=== PATIENT | female | born 1955 ===

== ENCOUNTER 2017-01-28 18:30 | Emergency (ER) | payer OTHER ==
[2017-01-28 18:34] VITALS: BMI 34.1
[2017-01-28 19:03] LABS: BASO % 0.2 % (0.0-2.0); EOS # 0.1 K/uL (0.0-0.7); EOS % 1.5 % (0.0-4.0); HEMATOCRIT 40.9 % (34.0-47.0); LYMPH # 1.5 K/uL (1.0-4.3); LYMPH % 17.7 % (20.0-40.0); MEAN CELL VOLUME 85.6 fL (81.0-99.0); MEAN CORPUSCULAR HEMOGLOBIN 28.9 pg (27.0-31.0); MEAN CORPUSCULAR HGB CONC 33.7 g/dL (33.0-37.0); MEAN PLATELET VOLUME 7.8 fL (7.2-11.7); MONO # 0.7 K/uL (0.0-0.8); MONO % 8.8 % (0.0-10.0); RED CELL DISTRIBUTION WIDTH 13.9 % (11.5-14.5); WHITE BLOOD COUNT 8.4 K/uL (4.8-10.8)
[2017-01-28] MEDS ORDERED: Sodium Chloride 0.9% 1,000 ML IV ONE (19:05)
--- NOTE | 2017-01-28 19:05 | C.PDOC ---
History Of Present Illness 61 y/o female c/o epigastric abdominal pain associated with vomiting for 2 days. Denies diarrhea, dysuria, and fever. Patient is vomiting in the ER. Time Seen by Provider: 01/28/17 19:07 Chief Complaint (Nursing): Abdominal Pain History Per: Patient History/Exam Limitations: no limitations Onset/Duration Of Symptoms: Days (2) Current Symptoms Are (Timing): Still Present Severity: Mild Location Of Pain/Discomfort: Epigastric Radiation Of Pain To:: None Quality Of Discomfort: "Pain" Associated Symptoms: Vomiting. denies: Fever, Diarrhea Recent travel outside of the [place]: No Additional History Per: Patient Past Medical History Reviewed: Historical Data, Nursing Documentation, Vital Signs Vital Signs: Last Vital Signs Temp 97.8 F 01/28/17 18:34 Pulse 115 H 01/28/17 18:34 Resp 18 01/28/17 18:34 BP 164/101 H 01/28/17 18:34 Pulse Ox 96 01/28/17 21:47 - Medical History PMH: Anemia, Anxiety, Asthma, Bipolar Disorder, Depression, Diabetes, Emphysema , HTN, Hypercholesterolemia, Hyperlipidemia, Schizophrenia Denies: Chronic Kidney Disease - [facility] Procedures COLONOSCOPY (08/18/13) TETANUS TOXOID ADMINIST (03/29/13) Family History: States: Unknown Family Hx - Social History Hx Tobacco Use: Yes Hx Alcohol Use: No Hx Substance Use: No - Immunization History Hx Tetanus Toxoid Vaccination: Yes (not sure) Hx Influenza Vaccination: Yes (not sure) Hx Pneumococcal Vaccination: Yes (not sure) Review Of Systems Except As Marked, All Systems Reviewed And Found Negative. Constitutional: Negative for: Fever Gastrointestinal: Positive for: Vomiting, Abdominal Pain. Negative for: Diarrhea Genitourinary: Negative for: Dysuria Physical Exam - Physical Exam Appears: Non-toxic, No Acute Distress Skin: Warm, Dry Head: Atraumatic, Normacephalic Chest: Symmetrical Cardiovascular: Rhythm Regular Respiratory: Normal Breath Sounds, No Rales, No Rhonchi, No Wheezing Gastrointestinal/Abdominal: Soft, Tenderness (Epigastric), No Mass (No palpable mass), No Guarding, No Rebound, Other (Abdomen obese) Back: No CVA Tenderness Neurological/Psych: Oriented x3, Normal Speech ED Course And Treatment - Laboratory Results Result Diagrams: 01/28/17 19:00 01/28/17 19:00 ECG: Interpreted By Me, Viewed By Me ECG Rhythm: Sinus Bradycardia ECG Interpretation: No Acute Changes, Abnormal Interpretation Of ECG: poor R-wave progression V1 to V4 Rate From EC O2 Sat by Pulse Oximetry: 96 (RA) Pulse Ox Interpretation: Normal - CT Scan/US CT Head w/o Other Rad Studies (CT/US): Interpreted By Me, Read By Radiologist CT/US Interpretation: EXAM: CT Head Without Intravenous Contrast. CLINICAL HISTORY: 61 years old, female; Signs and symptoms; Dizziness; Additional info: Headache/ vomiting. TECHNIQUE: Axial computed tomography images of the head/ brain without intravenous contrast. All CT scans at. this facility use one or more dose reduction techniques, viz.: automated exposure control; ma/kV. adjustment per patient size (including targeted exams where dose is matched to indication; i.e. head);. or iterative reconstruction technique. COMPARISON: No relevant prior studies available. FINDINGS: Brain: Minimal atrophy. No intracranial hemorrhage. No mass. Several scattered foci of decreased. attenuation within periventricular/subcortical white matter. No definite edema. Ventricles: No hydrocephalus. Bones/joints: No acute fracture. Soft tissues : Unremarkable. Vasculature: Mild atherosclerotic disease of intracranial arteries. Sinuses: No acute sinusitis. Mastoid air cells: No mastoid effusion. Orbits: Unremarkable as visualized. IMPRESSION: 1. Nonspecific white matter changes. Acute infarction may be CT occult within first 24 hours. If a. focal deficit persists, consider followup CT or MRI for further evaluation. 2. Incidental/non-acute findings are described above. CTAbd/Pel with IV Other Rad Studies (CT/US): Interpreted By Me, Read By Radiologist CT/US Interpretation: EXAM: CT Abdomen and Pelvis With Intravenous Contrast. CLINICAL HISTORY: 61 years old, female; Pain; Abdominal pain; Flank; Upper; Additional info: Upper abd pain/ vomiting. TECHNIQUE: Axial computed tomography images of the abdomen and pelvis with intravenous contrast. All CT. scans at this facility use one or more dose reduction techniques, viz.: automated exposure control;. ma/kV adjustment per patient size (including targeted exams where dose is matched to indication; i.e. head); or iterative reconstruction technique. Coronal and sagittal reformatted images were created and reviewed. CONTRAST: 100 mL of visipaque 320 administered intravenously. COMPARISON: No relevant prior studies available. FINDINGS: Limitations: Motion artifact - mild. Lower thorax: Minimal atelectasis/scarring. Small pericardial effusion. ABDOMEN: Liver: Unremarkable. No mass. Gallbladder and bile ducts: No calcified stones. No ductal dilation. Pancreas: No ductal dilation. No mass. Spleen: No splenomegaly. Adrenals: No mass. Kidneys and ureters: No mass. No hydronephrosis. Stomach and bowel: Mild focal mural thickening vs underdistention of gastric antrum. Few scattered. diverticula within colon. No associated inflammatory stranding. Segmental areas of mild mural. thickening vs underdistention of large bowel. No associated inflammatory stranding. No obstruction. Appendix: Normal caliber. No inflammation. PELVIS: Bladder: Unremarkable. Reproductive: 1.9 x 2.0 x 1.6 cm hypodense lesion within LEFT adnexal region. ABDOMEN and PELVIS: Intraperitoneal space: No significant fluid collection. No free air. Bones/ joints: Mild degenerative changes of spine. No acute fracture. Soft tissues: Tiny umbilical hernia containing fat. Vasculature: Mild atherosclerotic disease. No aneurysm. Lymph nodes: No pathologically enlarged lymph nodes. IMPRESSION: 1. Mild colitis versus underdistention. Clinical correlation is needed. 2. Probable LEFT adnexal cyst. Suggest nonemergent ultrasound. 3. Incidental/non-acute findings are described above. Medical Decision Making Medical Decision Making: Impression: * epigastric abdominal pain associated with vomiting for 2 days. Plans: * CT Abd/Pel w/ PO and IV contrast * EKG * Blood labs * Pepcid * Omnipaque * Zofran * IV fluids * UA Patient has been witness doing self-induced vomiting with her hands. Disposition Counseled Patient/Family Regarding: Diagnosis - Disposition Referrals: [facility] [Outside] Disposition: HOME/ ROUTINE Disposition Time: 21:54 Condition: STABLE Prescriptions: Famotidine [Pepcid] 20 mg PO BID #20 tab Ondansetron ODT [Zofran ODT] 1 odt PO BID PRN #6 odt PRN Reason: Nausea/Vomiting Sucralfate [Carafate] 1 gm PO BID #20 tab Instructions: Gastritis (GEN), Diet for Ulcers and Gastritis (ED), Acute Nausea and Vomiting (ED) Forms: [facility] (Mauritian), Gen Discharge Inst Georgian - POA Present On Arrival: None - Clinical Impression Clinical Impression: Vomiting, Gastritis - Scribe Statement The provider has reviewed the documentation as recorded by the Scribe Rita bacon All medical record entries made by the Scribe were at my direction and personally dictated by me. I have reviewed the chart and agree that the record accurately reflects my personal performance of the history, physical exam, medical decision making, and the department course for this patient. I have also personally directed, reviewed, and agree with the discharge instructions and disposition.
[2017-01-28] MEDS ORDERED: Iohexol 240 (50 ml) PO ONE (19:08)
[2017-01-28 19:12] LABS: CHLORIDE 94 mmol/L (98-107); POTASSIUM 3.9 mmol/L (3.6-5.2); SODIUM 130 mmol/L (132-148)
[2017-01-28 19:15] LABS: ALB/GLOB RATIO 1.2 (1.0-2.1); ALKALINE PHOSPHATASE 90 U/L (38-126); AST/SGOT 60 U/L (14-36); BLOOD UREA NITROGEN 5 mg/dL (7-17); CARBON DIOXIDE 24 mmol/L (22-30); GFR AFRICAN-AMERICAN > 60; GLUCOSE,RANDOM 110 mg/dL (65-105); TOTAL PROTEIN 8.5 g/dL (6.3-8.3)
[2017-01-28 19:16] LABS: ALT/SGPT 60 U/L (9-52); CALCIUM 9.7 mg/dl (8.6-10.4)
[2017-01-28] MEDS ORDERED: Iohexol 240 (50 ml) ONE (19:28)
[2017-01-28 20:05] LABS: RBC URINE 1 /hpf (0-3); URINE BACTERIA RARE (<OCC); URINE BILIRUBIN NEGATIVE (NEGATIVE); URINE BLOOD NEGATIVE (NEGATIVE); URINE COLOR Yellow (YELLOW); URINE GLUCOSE (UA) NORMAL (Normal); URINE KETONE NEGATIVE (NEGATIVE); URINE LEUKOCYTE ESTERASE 1+ Leu/uL (Negative); URINE PROTEIN 2+ mg/dL (NEGATIVE); URINE UROBILINOGEN NORMAL mg/dL (0.2-1.0); WBC URINE 28 /hpf (0-5)
[2017-01-28] MEDS ORDERED: Iodixanol 320 MG/ML 100 ML BOTTLE IV ONE (20:15)
--- NOTE | 2017-01-28 21:23 | CT ---
EXAM: CT Head Without Intravenous Contrast CLINICAL HISTORY: 61 years old, female; Signs and symptoms; Dizziness; Additional info: Headache/ vomiting TECHNIQUE: Axial computed tomography images of the head/brain without intravenous contrast. All CT scans at this facility use one or more dose reduction techniques, viz.: automated exposure control; ma/kV adjustment per patient size (including targeted exams where dose is matched to indication; i.e. head); or iterative reconstruction technique. COMPARISON: No relevant prior studies available. FINDINGS: Brain: Minimal atrophy. No intracranial hemorrhage. No mass. Several scattered foci of decreased attenuation within periventricular/subcortical white matter. No definite edema. Ventricles: No hydrocephalus. Bones/joints: No acute fracture. Soft tissues: Unremarkable. Vasculature: Mild atherosclerotic disease of intracranial arteries. Sinuses: No acute sinusitis. Mastoid air cells: No mastoid effusion. Orbits: Unremarkable as visualized. IMPRESSION: 1. Nonspecific white matter changes. Acute infarction may be CT occult within first 24 hours. If a focal deficit persists, consider followup CT or MRI for further evaluation. 2. Incidental/non-acute findings are described above.
--- NOTE | 2017-01-28 21:34 | CT ---
EXAM: CT Abdomen and Pelvis With Intravenous Contrast CLINICAL HISTORY: 61 years old, female; Pain; Abdominal pain; Flank; Upper; Additional info: Upper abd pain/ vomiting TECHNIQUE: Axial computed tomography images of the abdomen and pelvis with intravenous contrast. All CT scans at this facility use one or more dose reduction techniques, viz.: automated exposure control; ma/kV adjustment per patient size (including targeted exams where dose is matched to indication; i.e. head); or iterative reconstruction technique. Coronal and sagittal reformatted images were created and reviewed. CONTRAST: 100 mL of visipaque 320 administered intravenously. COMPARISON: No relevant prior studies available. FINDINGS: Limitations: Motion artifact - mild. Lower thorax: Minimal atelectasis/scarring. Small pericardial effusion. ABDOMEN: Liver: Unremarkable. No mass. Gallbladder and bile ducts: No calcified stones. No ductal dilation. Pancreas: No ductal dilation. No mass. Spleen: No splenomegaly. Adrenals: No mass. Kidneys and ureters: No mass. No hydronephrosis. Stomach and bowel: Mild focal mural thickening vs underdistention of gastric antrum. Few scattered diverticula within colon. No associated inflammatory stranding. Segmental areas of mild mural thickening vs underdistention of large bowel. No associated inflammatory stranding. No obstruction. Appendix: Normal caliber. No inflammation. PELVIS: Bladder: Unremarkable. Reproductive: 1.9 x 2.0 x 1.6 cm hypodense lesion within LEFT adnexal region. ABDOMEN and PELVIS: Intraperitoneal space: No significant fluid collection. No free air. Bones/joints: Mild degenerative changes of spine. No acute fracture. Soft tissues: Tiny umbilical hernia containing fat. Vasculature: Mild atherosclerotic disease. No aneurysm. Lymph nodes: No pathologically enlarged lymph nodes. IMPRESSION: 1. Mild colitis versus underdistention. Clinical correlation is needed. 2. Probable LEFT adnexal cyst. Suggest nonemergent ultrasound. 3. Incidental/non-acute findings are described above.
[2017-01-28] MEDS ORDERED: Aluminum Hydroxide/Magnesium Hydroxide Susp (30 mL) ONE (21:53)
[2017-01-28 22:35] VITALS: BP 167/74; PULSE 94; RESP 20; TEMP 98.5; O2SAT 99
--- NOTE | 2017-01-30 19:30 | CARD ---
APPROVED REPORT EKG Measurement Heart [id number] <Conclusion> Sinus tachycardia Poor R wave progression. Abnormal ECG
== END 2017-01-28 22:22 | disposition home or self-care (01) ==
LOC: C.ER 18:30
DX: K29.70 Gastritis, unspecified, without bleeding (principal); R11.10 Vomiting, unspecified; I10 Essential (primary) hypertension; E11.9 Type 2 diabetes mellitus without complications; Z87.891 Personal history of nicotine dependence
CPT/HCPCS: 70450; 74177; 80053; 81001; 83690; 85025; 87086; 96374; 96375; 99285; J1885; J2270; J2405; J2765; J7040; Q9966; Q9967

== ENCOUNTER 2018-06-10 00:51 | Inpatient (IN) | payer MEDICARE, OTHER ==
[2018-06-10 00:51] VITALS: BMI 34.1
[2018-06-10] MEDS ORDERED: Naproxen 550 mg Tab PO STA (01:31)
--- NOTE | 2018-06-10 01:40 | C.PDOC ---
History Of Present Illness 63 year old female presents to the ED for evaluation of suicidal ideations for the past few days. Patient also c/o chronic lower back pain. Patient denies HI, hallucinations, injury, fall, trauma. Chief Complaint (Nursing): Psychiatric Evaluation History Per: Patient History/Exam Limitations: no limitations Onset/Duration Of Symptoms: Days Current Symptoms Are (Timing): Still Present Suicide/Self Injury Attempted (Context): None Associated Symptoms: Depression, Suicidal Thoughts. denies: Suicidal Plan Recent travel outside of the [place]: No Additional History Per: Patient, EMS Past Medical History Reviewed: Historical Data, Nursing Documentation, Vital Signs Vital Signs: Last Vital Signs Temp 98.7 F 06/10/18 01:05 Pulse 105 H 06/10/18 01:05 Resp 20 06/10/18 01:05 BP 133/78 06/10/18 01:05 Pulse Ox 95 06/10/18 01:05 - Medical History PMH: Anemia, Anxiety, Asthma, Bipolar Disorder, Depression, Diabetes, Emphysema, HTN, Hypercholesterolemia, Hyperlipidemia, Schizophrenia Denies: Hepatitis, HIV, Chronic Kidney Disease, Seizures, Sexually Transmitted Disease Surgical History: No Surg Hx - [facility] Procedures COLONOSCOPY (08/18/13) TETANUS TOXOID ADMINIST (03/29/13) Family History: States: Unknown Family Hx - Social History Hx Tobacco Use: Yes Hx Alcohol Use: No Hx Substance Use: No - Immunization History Hx Tetanus Toxoid Vaccination: Yes (not sure) Hx Influenza Vaccination: Yes (not sure) Hx Pneumococcal Vaccination: Yes (not sure) Review Of Systems Constitutional: Negative for: Fever, Chills Cardiovascular: Negative for: Chest Pain, Palpitations Respiratory: Negative for: Cough, Shortness of Breath Gastrointestinal: Negative for: Nausea, Vomiting, Abdominal Pain Skin: Negative for: Rash Psych: Positive for: Depression, Suicidal ideation Physical Exam - Physical Exam Appears: Non-toxic, No Acute Distress Skin: Normal Color, Warm, Dry Head: Atraumatic, Normacephalic Eye(s): bilateral: Normal Inspection Neck: Normal ROM, Supple Chest: Symmetrical Cardiovascular: Rhythm Regular Respiratory: Normal Breath Sounds, No Rales, No Rhonchi, No Wheezing Gastrointestinal/Abdominal: Soft, No Tenderness, No Guarding, No Rebound Extremity: Normal ROM, No Tenderness, No Swelling Neurological/Psych: Oriented x3, Normal Speech, Normal Cognition Gait: Steady ED Course And Treatment - Laboratory Results Result Diagrams: 06/10/18 02:40 06/10/18 02:40 O2 Sat by Pulse Oximetry: 95 (On RA) Pulse Ox Interpretation: Normal Medical Decision Making Medical Decision Making: Plan: * Labs * UA * Naproxen 550 mg PO Disposition - Disposition Referrals: Soraya Hernandez MD [Primary Care Provider] - Disposition Time: 07:00 Condition: STABLE Forms: [facility] (Slovenian) - Clinical Impression Clinical Impression: Suicidal ideation - Scribe Statement The provider has reviewed the documentation as recorded by the Scribe Kenn Chandler All medical record entries made by the Scribe were at my direction and personally dictated by me. I have reviewed the chart and agree that the record accurately reflects my personal performance of the history, physical exam, medical decision making, and the department course for this patient. I have also personally directed, reviewed, and agree with the discharge instructions and disposition.
[2018-06-10] MEDS ORDERED: Naproxen 550 mg Tab PO ONE (02:29)
[2018-06-10 02:44] LABS: BASO % 0.3 % (0.0-2.0); EOS # 0.1 K/uL (0.0-0.7); EOS % 0.9 % (0.0-4.0); HEMOGLOBIN 13.7 g/dL (11.0-16.0); LYMPH # 1.9 K/uL (1.0-4.3); LYMPH % 20.8 % (20.0-40.0); MEAN CELL VOLUME 88.7 fL (81.0-99.0); MEAN CORPUSCULAR HEMOGLOBIN 29.3 pg (27.0-31.0); MEAN PLATELET VOLUME 8.9 fL (7.2-11.7); MONO # 0.8 K/uL (0.0-0.8); MONO % 8.8 % (0.0-10.0); NEUT # 6.2 K/uL (1.8-7.0); NEUT % 69.2 % (50.0-75.0); RBC 4.67 Mil/uL (3.80-5.20); RED CELL DISTRIBUTION WIDTH 12.9 % (11.5-14.5)
[2018-06-10 02:48] LABS: SQUAMOUS EPITHIAL 20 /hpf (0-5); URINE BACTERIA RARE (<OCC); URINE BILIRUBIN NEGATIVE (NEGATIVE); URINE BLOOD NEGATIVE (NEGATIVE); URINE CLARITY Hazy (Clear); URINE COLOR Yellow (YELLOW); URINE GLUCOSE (UA) NORMAL (Normal); URINE HYALINE CAST 0-2 /lpf (0-2); URINE LEUKOCYTE ESTERASE 3+ Leu/uL (Negative); URINE PROTEIN 1+ mg/dL (NEGATIVE)
[2018-06-10 02:55] LABS: ALB/GLOB RATIO 1.5 (1.0-2.1); ALBUMIN 4.4 g/dL (3.5-5.0); ALT/SGPT 26 U/L (9-52); AST/SGOT 21 U/L (14-36); BLOOD UREA NITROGEN 7 mg/dL (7-17); CALCIUM 9.4 mg/dl (8.6-10.4); GFR NON-AFRICAN AMERICAN > 60
[2018-06-10 03:00] LABS: BARBITURATES, UR NEGATIVE (NEGATIVE); BENZODIAZEPINES, UR NEGATIVE (NEGATIVE); OPIATES, UR NEGATIVE (NEGATIVE); PHENCYCLIDINE, UR NEGATIVE (NEGATIVE)
[2018-06-10] MEDS ORDERED: Potassium Chloride 20 mEq/15 ml LIQ UD PO STA (03:27)
[2018-06-10] MEDS ORDERED: Potassium Chloride 20 mEq ER Tab PO ONE (04:38)
--- NOTE | 2018-06-10 09:39 | PCM.PSYCH ---
Initial Psychiatric Evaluation - Initial Psychiatric Evaluation Type of Admission: Voluntary Legal Status: Capacity Chief Complaint (in patient's own words): I was hearing voices..' History of Present Illness and Precipitating Events: Pt is a 63 year old female, who came to the ED because of auditory hallucinations command in nature telling her to kill herself and kill others with a knife. Patient reports a long history of schizophrenia. She reports history of few inpatient psychiatric admissions. She is following up with the [facility] outpatient program. As per the patient, she just received Invega Sustenna injection on 06/07/18 (given every 3 weeks). As per the patient, over the weekend she started hearing voices, which got worse, she became increasingly irritable and depressed and developed a suicidal ideation to kill herself and homicidal ideation to kill others the knife. She got concerned and came to the hospital to get help. She appears somewhat disorganized and internally preoccupied. She looks w orried, paranoid and delusional. Besides auditory hallucinations she reports of paranoia that someone is following her. She also reports visual hallucinations, seeing shadows. She reports depressed mood, at times feelings of hopelessness and helplessness. She also reports at times anxiety, shakes and irritability but denies any racing thoughts. She denies any recent drinking or any substance abuse, however she does report a history of alcohol and cocaine in the past. Past medical history Asthma , HTN, DM Past Psychiatric History - Past Psychiatric History Previous Treatment History: Inpatient Pertinent Medical Hx (Current Medical&Sleep Prob, Allergies): Allergies Allergy/AdvReac Type Severity Reaction Status Date / Time No Known Allergies Allergy Verified 01/28/17 18:33 metFORMIN [glucOPHAGE] 500 mg PO BID 09/01/14 traZODone [Desyrel] 100 mg PO HS 09/01/14 Benztropine [Cogentin] 2 mg PO TID #4 tab 10/18/15 Albuterol HFA [Ventolin HFA 90 mcg/actuation (8 g)] 2 puff IH Q4H PRN 12/06/15 LORazepam [Ativan] 0.5 mg PO BID 05/23/16 Montelukast [Singulair] 10 mg PO HS 05/23/16 Risperidone [Risperdal] 3 mg PO HS 05/23/16 Famotidine [Pepcid] 20 mg PO BID #20 tab 10/15/17 Sucralfate [Carafate] 1 gm PO BID #20 tab 01/28/17 Aspirin [Ecotrin] 81 mg PO DAILY 01/30/17 Ergocalciferol (Vitamin D2) [Vitamin D2] 50,000 unit PO QWK 01/30/17 Esomeprazole Magnesium [Nexium] 40 mg PO DAILY 01/30/17 Ferrous Sulfate [Feosol] 325 mg PO TID 01/30/17 Fluticasone/Salmeterol 250/50 [Advair Diskus 250/50] 1 puff IH Q12H 01/30/17 Amlodipine Besylate/Benazepril [Lotrel 10-20 mg Capsule] 10 mg PO DAILY 06/10/18 Cephalexin [Keflex] 500 mg PO BID 06/10/18 Clomiphene Citrate [Serophene] 06/10/18 Enalapril Maleate [Vasotec] 10 mg PO DAILY 06/10/18 Gnp Jose Mag Zinc-D3 Tablet 600 mg PO BID 06/10/18 Simvastatin 20 mg PO DAILY 06/10/18 Review of Systems - Review of Systems All systems: reviewed and no additional remarkable complaints except - Psychiatric Psychiatric: Anxiety, Auditory Hallucinations, Irritability, Suicidal Ideation Mental Status Examination - Personal Presentation Personal Presentation: Looks stated age - Affect Affect: Constricted - Motor Activity Motor Activity: Calm - Reliability in Providing Information Reliability in Providing Information: Poor, due to alteration in thoughts, Poor, due to altered mood - Speech Speech: Disorganized - Mood Mood: Depressed, Anxious - Formal Thought Process Formal Thought Process: Hallucinations, Delusions, Paranoia, Loosening of associations - Hallucinations/Delusions Hallucinations: Auditory Delusions: Persecution - Obsessions/Compulsions Obsessions: No Compulsions: No - Cognitive Functions Orientation: Person, Place, Situation, Time Sensorium: Alert Attention/Concentration: Attentive Abstract Thinking: [place] Estimate of Intelligence: Below average Judgement: Imparied, as evidence by: Poor judgement, Imparied, as evidence by: Lack of insight into illness - Risk Risk: Suicidal, Diminished functioning - Limitations Limitations: Living alone DSM 5 DX - DSM 5 DSM 5 Diagnosis: Schizophrenia paranoid type continues - Recommended/Plan of Treatment Treatment Recommendations and Plan of Treatment: Schizophrenia paranoid type continues Asthma HTN DM -CBT -Psychoeducation -Supportive therapy and group therapy -Invega for psychosis -Cogentin for EPS -Hydroxyzine for anxiety -Trazodone for insomnia -Continue medications for hypertension, asthma and diabetes - Smoking Cessation Smoking Cessation Initiated: No
[2018-06-10] MEDS ORDERED: Fluticasone-Vilanterol 100/25mcg Diskus INH SCH (09:45)
--- NOTE | 2018-06-10 10:28 | PCM.BM ---
<Anisha Cortes - Last Filed: 06/10/18 10:22> Treatment Plan Problems - Problems identified on initial assessmt AUDITORY HALLUCINATIONS Date Initiated: 06/10/18 Time Initiated: 08:45 Assessment reference: NA Status: Active MEDICATION NONADHERENCE Date Initiated: 06/10/18 Time Initiated: 08:45 Assessment reference: NA Status: Active Treatment assets and liabiliti Patient Assests: adapts well, cooperative, self-reliant, ADL independent, negotiates basic needs Patient Liabilities: live alone, poor support system, relationship conflicts, medical problems - Milieu Protocol Maintain good personal hygiene: daily Encourage regular showers, daily Remind patient to perform daily oral care, daily Assist patient to perform ADL's Conduct patient checks and document Observation sheet: Q15 minutes Maintain personal safety: every shift Educate patient to report safety concerns to staff, every shift Monitor environment for contraband/sharps Medication safety: Monitor for expected outcome, potential side effects: every shift, Assess barriers to learning: every shift, Assess readiness for medication education: every shift <Irene Maldonado - Last Filed: 06/10/18 11:17> - Diagnosis (1) Schizophrenia Status: Acute Interventions: 06/10/18 11:17 * Assess/adjust medications daily and /or as needed * See patient on an individual basis 7x/week to assess status of hallucinations * Discuss risks, benefits, side effects and alternatives of medications * <Tasia Del Valle - Last Filed: 06/10/18 11:58> Family Contact Family involvement: Patient does not wish Family/SO involvement Family contact: Patient declines to allow family contact at present - Goals for Treatment Patient goals for treatment: "I want to go back to [facility] outpatient." Discharge/Continuing Care - Education Needs Education Needs: Patient Medication, Patient Diagnosis/Disease Process, Patient Coping Skills - Discharge Discharge Criteria: Free of Suicidal thoughts, Normal sleep pattern, Ability to care for self, Reduction of target symptoms Discharge to:: Home - Treatment Team Participation Discussed with Family/SO: No Was Patient/Family/SO present at Treatment Team Meeting: Yes
[2018-06-10] MEDS: Ergocalciferol 50,000 Intl Units Cap PO SCH (11:03)
[2018-06-10] MEDS: Pantoprazole 40 mg EC Tab PO SCH (11:04)
[2018-06-11] MEDS: Fluticasone-Vilanterol 100/25mcg Diskus INH SCH (08:30)
[2018-06-11] MEDS: Pantoprazole 40 mg EC Tab PO SCH (10:00)
[2018-06-11] MEDS: Multivitamin With Minerals Tab PO SCH (14:50)
[2018-06-12] MEDS: Albuterol HFA 90 mcg/actuation (8 g) IH PRN (06:03)
[2018-06-12] MEDS: Fluticasone-Vilanterol 100/25mcg Diskus INH SCH (08:06)
[2018-06-12] MEDS: Pantoprazole 40 mg EC Tab PO SCH (10:00)
--- NOTE | 2018-06-12 11:43 | PCM.PYCHPN ---
Psychiatric Progress Note - Psychiatric Progress Note Patient seen today, length of contact: 15 min Patient Chief Complaint: I am still hearing voices.' Problems Identified/Issues Discussed: Patient was seen and evaluated, chart reviewed and discussed with the staff. She still appears paranoid and delusional and remained disorganized. Patient still reports of hearing voices and seeing things. As per staff she remained internally preoccupied and was found responding to internal stimuli. However she is a medication but denies any side effects. Supportive therapy was given. Medication Change: Yes Medical Record Reviewed: Yes Mental Status Examination - Cognitive Function Orientation: Person, Place, Situation, Time Memory: Intact Attention: WNL Concentration: Poor Association: Loose Fund of Knowledge: WNL - Mood Mood: Depressed, Anxious - Affect Affect: Constricted - Speech Speech: Soft - Formal Thought Process Formal Thought Process: Hallucinations, Delusions, Paranoia, Loosening of associations - Suicidal Ideation Suicidal Ideation: No - Homicidal Ideation Homicidal Ideation: No Goal/Treatment Plan - Goal/Treatment Plan Need for Continued Stay: Remain at risks for inpatient hospitalization Progress Toward Problem(s) and Goals/Treatment Plan: Schizophrenia paranoid type continues Asthma HTN DM -CBT -Psychoeducation -Supportive therapy and group therapy -Invega for psychosis -Geodon for psychosis -Neurontin for mood -Cogentin for EPS -Hydroxyzine for anxiety -Trazodone for insomnia -Continue medications for hypertension, asthma and diabetes - Smoking Cessation Smoking Cessation Initiated: No
[2018-06-12] MEDS: Multivitamin With Minerals Tab PO SCH (14:42)
[2018-06-13] MEDS: Fluticasone-Vilanterol 100/25mcg Diskus INH SCH (08:01)
[2018-06-13] MEDS ORDERED: Pneumococcal 23-Valent Vaccine IM ONE (09:00)
[2018-06-13] MEDS: Pantoprazole 40 mg EC Tab PO SCH (09:25)
[2018-06-13] MEDS: Multivitamin With Minerals Tab PO SCH (09:30)
--- NOTE | 2018-06-13 14:56 | PCM.PYCHPN ---
Psychiatric Progress Note - Psychiatric Progress Note Patient seen today, length of contact: 15 min Patient Chief Complaint: I was hearing voices..' Problems Identified/Issues Discussed: Patient was seen and evaluated, chart reviewed and discussed with the staff. Patient still reports of hearing voices and seeing things. She still appears paranoid and delusional and remained disorganized. As per staff she remained internally preoccupied and was found responding to internal stimuli. However she is a medication but denies any side effects. Supportive therapy was given. Medication Change: Yes Medical Record Reviewed: Yes Mental Status Examination - Cognitive Function Orientation: Person, Place, Situation, Time Memory: Intact Attention: WNL Concentration: Poor Association: Loose Fund of Knowledge: Poor - Mood Mood: Depressed, Anxious - Affect Affect: Constricted - Speech Speech: Soft - Formal Thought Process Formal Thought Process: Hallucinations, Delusions, Paranoia, Loosening of associations - Suicidal Ideation Suicidal Ideation: No - Homicidal Ideation Homicidal Ideation: No Goal/Treatment Plan - Goal/Treatment Plan Need for Continued Stay: Remain at risks for inpatient hospitalization Progress Toward Problem(s) and Goals/Treatment Plan: Schizophrenia paranoid type continues Asthma HTN DM -CBT -Psychoeducation -Supportive therapy and group therapy -Invega for psychosis -Geodon for psychosis -Neurontin for mood -Cogentin for EPS -Hydroxyzine for anxiety -Trazodone for insomnia -Continue medications for hypertension, asthma and diabetes - Smoking Cessation Smoking Cessation Initiated: No
[2018-06-13] MEDS: Albuterol HFA 90 mcg/actuation (8 g) IH PRN ×2 (18:27→22:36)
[2018-06-14] MEDS: Fluticasone-Vilanterol 100/25mcg Diskus INH SCH (08:24)
[2018-06-14] MEDS: Pantoprazole 40 mg EC Tab PO SCH (10:08)
[2018-06-14] MEDS: Multivitamin With Minerals Tab PO SCH (10:13)
--- NOTE | 2018-06-15 01:32 | PCM.PYCHPN ---
Psychiatric Progress Note - Psychiatric Progress Note Patient seen today, length of contact: 15 min Patient Chief Complaint: I am hearing voices.' Problems Identified/Issues Discussed: Patient was seen and evaluated, chart reviewed and discussed with the staff. She still appears paranoid and delusional and remained disorganized. Patient still reports of hearing voices and seeing things. As per staff she remained internally preoccupied and was found responding to internal stimuli. However she is a medication but denies any side effects. Supportive therapy was given. Medication Change: Yes Medical Record Reviewed: Yes Mental Status Examination - Cognitive Function Orientation: Person, Place, Situation, Time Memory: Intact Attention: WNL Concentration: Poor Association: Loose Fund of Knowledge: WNL - Mood Mood: Depressed, Anxious - Affect Affect: Constricted - Speech Speech: Soft - Formal Thought Process Formal Thought Process: Hallucinations, Delusions, Paranoia, Loosening of associations - Suicidal Ideation Suicidal Ideation: No - Homicidal Ideation Homicidal Ideation: No Goal/Treatment Plan - Goal/Treatment Plan Need for Continued Stay: Remain at risks for inpatient hospitalization Progress Toward Problem(s) and Goals/Treatment Plan: Schizophrenia paranoid type continues Asthma HTN DM -CBT -Psychoeducation -Supportive therapy and group therapy -Invega for psychosis -Geodon for psychosis -Neurontin for mood -Cogentin for EPS -Hydroxyzine for anxiety -Trazodone for insomnia -Continue medications for hypertension, asthma and diabetes
[2018-06-15] MEDS: Fluticasone-Vilanterol 100/25mcg Diskus INH SCH (08:45)
[2018-06-15] MEDS: Pantoprazole 40 mg EC Tab PO SCH (10:05)
[2018-06-15] MEDS: Multivitamin With Minerals Tab PO SCH (10:05)
--- NOTE | 2018-06-15 23:01 | PCM.PYCHPN ---
Psychiatric Progress Note - Psychiatric Progress Note Patient seen today, length of contact: 15 min Patient Chief Complaint: I am feeling better. My sleep is also better. Problems Identified/Issues Discussed: Patient seen, chart reviewed, case discussed with the staff. Issues related to illness and treatment were discussed with the patient and staff. Reported compliant with treatment with no adverse effects. Tolerating treatment very well. Mood reported as okay. Affect appropriate. Patient reported feeling little better. Patient also reported that her sleep is better than before. Patient needs more time for stabilization. Aftercare discussed with the patient. Patient denied any delusions, auditory or visual hallucinations, no suicidal ideations or homicidal ideations at the time of evaluation Medical Problems: Hypertension Diabetes mellitus Asthma Diagnostic Results: Reviewed DSM 5 Symptoms Update: Some improvement with treatment. Medication Change: No Medical Record Reviewed: Yes Mental Status Examination - Cognitive Function Orientation: Person, Place, Situation, Time Memory: Intact Attention: WNL Concentration: WNL Association: WN Fund of Knowledge: [facility] Decription of patient's judgement and insights: Fair - Mood Mood: Depressed (Less than before) - Affect Affect: Depressed - Speech Speech: Soft - Formal Thought Process Formal Thought Process: No Impairment - Suicidal Ideation Suicidal Ideation: No - Homicidal Ideation Homicidal Ideation: No Goal/Treatment Plan - Goal/Treatment Plan Need for Continued Stay: Remain at risks for inpatient hospitalization, Discharge may exacerbated symptoms, Severe functional impairment Progress Toward Problem(s) and Goals/Treatment Plan: Patient education. Supportive therapy. Continue treatment as before. Estimated Date of D/C: 06/18/18 - Smoking Cessation Smoking Cessation Initiated: No
[2018-06-16] MEDS: Fluticasone-Vilanterol 100/25mcg Diskus INH SCH (08:00)
[2018-06-16] MEDS: Pantoprazole 40 mg EC Tab PO SCH (09:28)
[2018-06-16] MEDS: Multivitamin With Minerals Tab PO SCH (09:29)
[2018-06-17 06:32] VITALS: BP 118/76; PULSE 79; RESP 20; TEMP 98.6; O2SAT 96
[2018-06-17] MEDS: Fluticasone-Vilanterol 100/25mcg Diskus INH SCH (07:54)
[2018-06-17] MEDS: Ergocalciferol 50,000 Intl Units Cap PO SCH (09:42)
[2018-06-17] MEDS: Pantoprazole 40 mg EC Tab PO SCH (09:42)
[2018-06-17] MEDS: Multivitamin With Minerals Tab PO SCH (09:47)
--- NOTE | 2018-06-17 10:38 | PCM.PYCHDC ---
Mental Status Examination - Mental Status Examination Orientation: Person, Place, Situation, Time Memory: Intact Mood: Neutral Affect: Constricted Speech: Soft Attention: WNL Concentration: WNL Association: WNL Fund of Knowledge: WNL Formal Thought Process: No Impairment Description of patient's judgement and insight: good, fair Psychotic Thoughts and Behaviors: denies any AVH Suicidal Ideation: No Current Homicidal Ideation?: No Discharge Summary - Discharge Note Reason for Hospitalization: Pt is a 63 year old female, who came to the ED because of auditory hallucinations command in nature telling her to kill herself and kill others with a knife. Patient reports a long history of schizophrenia. She reports history of few inpatient psychiatric admissions. She is following up with the [facility] outpatient program. As per the patient, she just received Invega Sustenna injection on 06/07/18 (given every 3 weeks). As per the patient, over the weekend she started hearing voices, which got worse, she became increasingly irritable and depressed and developed a suicidal ideation to kill herself and homicidal ideation to kill others the knife. She got concerned and came to the hospital to get help. She appears somewhat disorganized and internally preoccupied. She looks worried, paranoid and delusional. Besides auditory hallucinations she reports of paranoia that someone is following her. She also reports visual hallucinations, seeing shadows. She reports depressed mood, at times feelings of hopelessness and helplessness. She also reports at times anxiety, shakes and irritability but denies any racing thoughts. She denies any recent drinking or any substance abuse, however she does report a history of alcohol and cocaine in the past. Laboratory Data: Abnormal Lab Results 06/17/18 07:32 POC Glucose (mg/dL) 133 H Consultations:: List each consultation separately and include: 1. Reason for request. 2. Findings. 3. Follow-up Summary of Hospital Course include:: 1. Description of specific treatment plan utilized for patients during their course of treatmen. 2. Summarize the time- course for resolution of acute symptoms and/or regressed behaviors. 3. Describe issues identified and worked on during hospitalization. 4. Describe medication utilized. 5. Describe medical problems identified and treated. 6. Reassessment of suicide risk Summary of Hospital Course: Pt is a 63 year old female, who came to the ED because of auditory hallucinations command in nature telling her to kill herself and kill others with a knife. Patient reports a long history of schizophrenia. She reports history of few inpatient psychiatric admissions. She is following up with the [facility] outpatient program. As per the patient, she just received Invega Sustenna injection on 06/07/18 (given every 3 weeks). As per the patient, over the weekend she started hearing voices, which got worse, she became increasingly irritable and depressed and developed a suicidal ideation to kill herself and homicidal ideation to kill others the knife. She got concerned and came to the hospital to get help. She appears somewhat disorganized and internally preoccupied. She looks worried, paranoid and delusional. Besides auditory hallucinations she reports of paranoia that someone is following her. She also reports visual halluci nations, seeing shadows. She reports depressed mood, at times feelings of hopelessness and helplessness. She also reports at times anxiety, shakes and irritability but denies any racing thoughts. She denies any recent drinking or any substance abuse, however she does report a history of alcohol and cocaine in the past. Past medical history Asthma , HTN, DM - Diagnosis (1) Schizophrenia Current Visit: No Status: Acute - Final Diagnosis (DSM 5) Condition upon Discharge: STABLE DSM 5: Schizophrenia paranoid type continues Disposition: HOME/ ROUTINE Follow-up Treatment Plan: Schizophrenia paranoid type continues Asthma HTN DM -CBT -Psychoeducation -Supportive therapy and group therapy -Invega for psychosis -Geodon for psychosis -Neurontin for mood -Cogentin for EPS -Hydroxyzine for anxiety -Trazodone for insomnia -Continue medications for hypertension, asthma and diabetes Prescriptions/Medication Reconciliation: Gabapentin [Neurontin] 100 mg PO BID #60 cap traZODone [Desyrel] 100 mg PO HS #30 tab Ziprasidone [Geodon Cap] 40 mg PO BID #60 cap - Smoking Cessation Smoking Cessation Medication prescribed: No - Antipsychotic Medications Pt discharged on 2 or more routine antipsychotic medications: No
== END 2018-06-17 11:00 | disposition home or self-care (01) | DRG 430 ==
LOC: C.ER 00:51 → SUPCPDRO 00:51 → C.5E 08:17
PROVIDERS: ADMIT Psychiatry & Neurology Psychiatry; ATTEND Psychiatry & Neurology Psychiatry
PROC: GZHZZZZ Group Psychotherapy (ICD-10-PCS; principal; 2018-06-10)
PROC: GZ58ZZZ Individual Psychotherapy, Cognitive-Behavioral (ICD-10-PCS; 2018-06-10)
PROC: GZ56ZZZ Individual Psychotherapy, Supportive (ICD-10-PCS; 2018-06-10)
DX: F20.0 Paranoid schizophrenia (principal); J43.9 Emphysema, unspecified; R45.851 Suicidal ideations; G89.29 Other chronic pain; M54.9 Dorsalgia, unspecified; E11.9 Type 2 diabetes mellitus without complications; E78.00 Pure hypercholesterolemia, unspecified; F31.9 Bipolar disorder, unspecified; G47.00 Insomnia, unspecified; I10 Essential (primary) hypertension; R45.850 Homicidal ideations; Z87.891 Personal history of nicotine dependence

== ENCOUNTER 2018-07-02 01:41 | Inpatient (IN) | payer OTHER ==
[2018-07-02 01:43] VITALS: BMI 34.1
--- NOTE | 2018-07-02 02:25 | C.PDOC ---
History Of Present Illness Patient with Hx of schizophrenia presenting stating she is hearing voices telling her to kill herself by taking pill. Patient denies taking anything. Time Seen by Provider: 07/02/18 02:24 Chief Complaint (Nursing): Psychiatric Evaluation History Per: Patient History/Exam Limitations: no limitations Onset/Duration Of Symptoms: Hrs Current Symptoms Are (Timing): Still Present Suicide/Self Injury Attempted (Context): None Severity: None Pain Scale Rating Of: 0 Associated Symptoms: Suicidal Thoughts, Other (Hearing voices) Involuntary Hold By: None Recent travel outside of the [place]: No Past Medical History Reviewed: Historical Data, Nursing Documentation, Vital Signs - Medical History PMH: Anemia, Anxiety, Asthma, Bipolar Disorder, Depression, Diabetes, Emphysema, HTN, Hypercholesterolemia, Hyperlipidemia, Schizophrenia Denies: Hepatitis, HIV, Chronic Kidney Disease, Seizures, Sexually Transmitted Disease - [facility] Procedures COLONOSCOPY (08/18/13) GROUP PSYCHOTHERAPY (06/10/18) INDIVIDUAL PSYCHOTHERAPY, COGNITIVE-BEHAVIORAL (06/10/18) INDIVIDUAL PSYCHOTHERAPY, SUPPORTIVE (06/10/18) TETANUS TOXOID ADMINIST (03/29/13) Family History: States: Unknown Family Hx - Social History Hx Tobacco Use: Yes Hx Alcohol Use: Yes Hx Substance Use: Yes (Hx of alcohol, cocaine) - Immunization History Hx Tetanus Toxoid Vaccination: Yes (not sure) Hx Influenza Vaccination: Yes (not sure) Hx Pneumococcal Vaccination: Yes (not sure) Review Of Systems Constitutional: Negative for: Fever, Chills Cardiovascular: Negative for: Chest Pain, Palpitations Respiratory: Negative for: Cough, Shortness of Breath Gastrointestinal: Negative for: Nausea, Vomiting Neurological: Negative for: Weakness, Numbness Physical Exam - Physical Exam Appears: Non-toxic Skin: Warm, Dry Head: Normacephalic Oral Mucosa: Moist Chest: Symmetrical, No Tenderness Cardiovascular: Rhythm Regular Respiratory: No Rales, No Rhonchi, No Wheezing Gastrointestinal/Abdominal: Soft, No Tenderness Neurological/Psych: Oriented x3 ED Course And Treatment - Laboratory Results Result Diagrams: 07/02/18 02:06 07/02/18 03:14 Progress Note: Blood work and UA ordered. Crisis notified. Disposition Discussed With : Jessica Martinez Comment: accepted the pt on her service and took over the care at 5:41 AM Doctor Will See Patient In The: Hospital Counseled Patient/Family Regarding: Studies Performed, Diagnosis - Disposition Disposition: HOSPITALIZED Disposition Time: 02:25 Condition: FAIR Forms: [facility] (Iranian) - POA Present On Arrival: None - Clinical Impression Clinical Impression: Schizophrenia - Scribe Statement The provider has reviewed the documentation as recorded by the Scribe Devon Hernandez All medical record entries made by the Scribe were at my direction and pe rsonally dictated by me. I have reviewed the chart and agree that the record accurately reflects my personal performance of the history, physical exam, medical decision making, and the department course for this patient. I have also personally directed, reviewed, and agree with the discharge instructions and disposition. Decision To Admit - Pt Status Changed To: Hospital Disposition Of: Inpatient - Admit Certification Admit to Inpatient:: After my assessment, the patient will require hospitalization for at least two midnights. This is because of the severity of symptoms shown, intensity of services needed, and/or the medical risk in this patient being treated as an outpatient. - InPatient: Physician Admission Certification: I certify that this patient requires 2 or more midnights of care for the following reason:: After my assessment, the patient will require hospitalization for at least two midnights. This is because of the severity of symptoms shown, intensity of services needed, and/or the medical risk in this patient being treated as an outpatient. - . Bed Request Type: Psychiatry Admitting Physician: Jessica Martinez Patient Diagnosis: Schizophrenia
[2018-07-02 02:38] LABS: BASO % 0.5 % (0.0-2.0); EOS # 0.1 K/uL (0.0-0.7); EOS % 0.9 % (0.0-4.0); HEMOGLOBIN 14.3 g/dL (11.0-16.0); LYMPH # 1.6 K/uL (1.0-4.3); LYMPH % 18.8 % (20.0-40.0); MEAN CORPUSCULAR HEMOGLOBIN 30.4 pg (27.0-31.0); MEAN CORPUSCULAR HGB CONC 34.5 g/dL (33.0-37.0); MEAN PLATELET VOLUME 8.2 fL (7.2-11.7); MONO # 0.6 K/uL (0.0-0.8); MONO % 7.7 % (0.0-10.0); NEUT % 72.1 % (50.0-75.0); NRBC % 0.1 % (0.0-2.0); RBC 4.69 Mil/uL (3.80-5.20); RED CELL DISTRIBUTION WIDTH 12.4 % (11.5-14.5); WHITE BLOOD COUNT 8.3 K/uL (4.8-10.8)
[2018-07-02 02:47] LABS: SQUAMOUS EPITHIAL 4 /hpf (0-5); URINE BACTERIA RARE (<OCC); URINE BILIRUBIN NEGATIVE (NEGATIVE); URINE BLOOD NEGATIVE (NEGATIVE); URINE CLARITY Hazy (Clear); URINE COLOR Yellow (YELLOW); URINE GLUCOSE (UA) NORMAL (Normal); URINE LEUKOCYTE ESTERASE 1+ Leu/uL (Negative); URINE PROTEIN NEGATIVE (NEGATIVE)
[2018-07-02 02:51] LABS: BARBITURATES, UR NEGATIVE (NEGATIVE); BENZODIAZEPINES, UR NEGATIVE (NEGATIVE); OPIATES, UR NEGATIVE (NEGATIVE); PHENCYCLIDINE, UR NEGATIVE (NEGATIVE)
[2018-07-02 03:39] LABS: ALBUMIN 4.3 g/dL (3.5-5.0); BLOOD UREA NITROGEN 9 mg/dL (7-17); CALCIUM 10.1 mg/dl (8.6-10.4); GFR NON-AFRICAN AMERICAN > 60
[2018-07-02 03:40] LABS: ALB/GLOB RATIO 1.5 (1.0-2.1); ALT/SGPT 15 U/L (9-52); AST/SGOT 14 U/L (14-36)
[2018-07-02] MEDS ORDERED: Potassium Chloride 10 mEq ER Tab PO STA (05:40)
[2018-07-02] MEDS ORDERED: Potassium Chloride 20 mEq ER Tab PO ONE (05:57)
--- NOTE | 2018-07-02 07:01 | PCM.BM ---
<Carolyne Lui - Last Filed: 07/02/18 06:58> Treatment Plan Problems - Problems identified on initial assessmt Auditory hallucination Date Initiated: 07/02/18 Time Initiated: 06:25 Date resolved: 07/02/18 Assessment reference: NA Status: Active Deffecting Coping Date Initiated: 07/02/18 Time Initiated: 06:25 Date resolved: 07/02/18 Assessment reference: NA Status: Active Treatment assets and liabiliti Patient Assests: adapts well, cooperative, self-reliant, ADL independent, negotiates basic needs Patient Liabilities: live alone, medical problems ([place], HTN,) - Milieu Protocol Maintain good personal hygiene: daily Encourage regular showers, daily Remind patient to perform daily oral care, daily Assist patient to perform ADL's Conduct patient checks and document Observation sheet: Q15 minutes Maintain personal safety: every other day Educate patient to report safety concerns to staff, every other day Monitor environment for contraband/sharps Medication safety: Monitor for expected outcome, potential side effects: every other day, Assess barriers to learning: every other day, Assess readiness for medication education: every other day <Rebecca Cross - Last Filed: 07/03/18 12:12> Family Contact Family involvement: Famliy/SO not involved - Goals for Treatment Patient goals for treatment: "I need the right medication." Discharge/Continuing Care - Education Needs Education Needs: Patient Medication, Patient Coping Skills - Discharge Discharge Criteria: Tolerates medication w/o severe side effects, Reduction of target symptoms Discharge to:: Home - Treatment Team Participation Discussed with Family/SO: No Was Patient/Family/SO present at Treatment Team Meeting: Yes <Irene Maldonado - Last Filed: 07/05/18 10:36> - Diagnosis (1) Schizoaffective disorder Status: Acute Interventions: 07/05/18 10:36 * Assess/adjust medications daily and /or as needed * See patient on an individual basis 7x/week to assess status of hallucinations * Discuss risks, benefits, side effects and alternatives of medications *
--- NOTE | 2018-07-02 09:59 | PCM.PSYCH ---
Initial Psychiatric Evaluation - Initial Psychiatric Evaluation Type of Admission: Voluntary Legal Status: Capacity Chief Complaint (in patient's own words): I was feeling depressed and suicidal.' History of Present Illness and Precipitating Events: This is a 63 year old female who came to the ED because of auditory hallucinations commanding her to take pills and kill herself. Patient reports a long history of schizophrenia with a few inpatient psychiatric admissions. Her most recent admission was 06/10/18 at [facility] [place]. Patient could not remember what she was supposed to do following her last admission. Patient states she stopped taking medications a few days ago and has started hearing the voices again. Patient confirms feeling depressed, irritable, having suicidal and homicidal ideation. Patient denied having a plan to carry out the suicide. She came to the hospital because she was concerned. Patient appears disorganized and internally preoccupied. She looks worried, paranoid, and delusional. Patient confirms seeing shadows. Patient reported a depressed mood, feeling anxious, or any racing thoughts. She denied recent alcohol or other substance abuse. Patient confirms history of alcohol and cocaine use. PsychHx: schizophrenia paranoid type, continuous FamPsych: denies MedHx: asthma, HTN, DM Allergies: denies Past Psychiatric History - Past Psychiatric History Previous Treatment History: Inpatient Pertinent Medical Hx (Current Medical&Sleep Prob, Allergies): Allergies Allergy/AdvReac Type Severity Reaction Status Date / Time No Known Allergies Allergy Verified 07/02/18 01:53 metFORMIN [glucOPHAGE] 500 mg PO BID 09/01/14 traZODone [Desyrel] 100 mg PO HS 09/01/14 Benztropine [Cogentin] 2 mg PO TID #4 tab 10/18/15 Albuterol HFA [Ventolin HFA 90 mcg/actuation (8 g)] 2 puff IH Q4H PRN 12/06/15 LORazepam [Ativan] 0.5 mg PO BID 05/23/16 Montelukast [Singulair] 10 mg PO HS 05/23/16 Risperidone [Risperdal] 3 mg PO HS 05/23/16 Famotidine [Pepcid] 20 mg PO BID #20 tab 01/28/17 Sucralfate [Carafate] 1 gm PO BID #20 tab 01/28/17 Aspirin [Ecotrin] 81 mg PO DAILY 01/30/17 Ergocalciferol (Vitamin D2) [Vitamin D2] 50,000 unit PO QWK 01/30/17 Esomeprazole Magnesium [Nexium] 40 mg PO DAILY 01/30/17 Ferrous Sulfate [Feosol] 325 mg PO TID 01/30/17 Fluticasone/Salmeterol 250/50 [Advair Diskus 250/50] 1 puff IH Q12H 01/30/17 Amlodipine Besylate/Benazepril [Lotrel 10-20 mg Capsule] 10 mg PO DAILY 06/10/18 Cephalexin [Keflex] 500 mg PO BID 06/10/18 Clomiphene Citrate [Serophene] 06/10/18 Enalapril Maleate [Vasotec] 10 mg PO DAILY 06/10/18 Gnp Jose Mag Zinc-D3 Tablet 600 mg PO BID 06/10/18 Simvastatin 20 mg PO DAILY 06/10/18 Gabapentin [Neurontin] 100 mg PO BID #60 cap 06/17/18 Ziprasidone [Geodon Cap] 40 mg PO BID #60 cap 06/17/18 Review of Systems - Review of Systems All systems: reviewed and no additional remarkable complaints except - Psychiatric Psychiatric: Anxiety, Auditory Hallucinations, Irritability, Paranoia, Suicidal Ideation Mental Status Examination - Personal Presentation Personal Presentation: Looks stated age - Affect Affect: Constricted, Depressed - Motor Activity Motor Activity: Psychomotor Retardation - Reliability in Providing Information Reliability in Providing Information: Poor, due to alteration in thoughts, Poor, due to altered mood - Speech Speech: Disorganized - Mood Mood: Anxious - Formal Thought Process Formal Thought Process: Hallucinations, Delusions, Paranoia, Loosening of associations - Hallucinations/Delusions Hallucinations: Visual, Auditory Delusions: Persecution - Obsessions/Compulsions Obsessions: No Compulsions: No - Cognitive Functions Orientation: Person, Place, Situation, Time Sensorium: Alert Attention/Concentration: Attentive Abstract Thinking: [place] Estimate of Intelligence: Below average Judgement: Imparied, as evidence by: Poor judgement, Imparied, as evidence by: Lack of insight into illness - Risk Risk: Suicidal, Diminished functioning - Limitations Limitations: Living alone DSM 5 DX - DSM 5 DSM 5 Diagnosis: Schizoaffective disorder depressive type - Recommended/Plan of Treatment Treatment Recommendations and Plan of Treatment: Schizoaffective disorder depressive type Diabetes mellitus Hypertension Asthma -CBT -Psychoeducation -Supportive therapy and group therapy -Hydroxyzine for anxiety -Trazodone for insomnia -Ziprasidone for psychosis -Continue medications for DM/HTN/asthma
[2018-07-02] MEDS: Albuterol HFA 90 mcg/actuation (8 g) IH PRN ×2 (14:11→21:40)
[2018-07-02] MEDS: Calcium-Vit D 500 mg-200 Units Tab UD PO SCH (18:58)
[2018-07-03] MEDS: Fluticasone-Vilanterol 100/25mcg Diskus INH SCH (08:13)
[2018-07-03] MEDS: Calcium-Vit D 500 mg-200 Units Tab UD PO SCH ×2 (09:10→18:54)
--- NOTE | 2018-07-03 23:47 | PCM.PYCHPN ---
Psychiatric Progress Note - Psychiatric Progress Note Patient seen today, length of contact: 15 min Patient Chief Complaint: I was feeling depressed.' Problems Identified/Issues Discussed: Patient was seen and evaluated, chart reviewed and discussed with the staff. Patient remained disorganized and internally preoccupied. She still appears paranoid, delusional and bizarre. She reports depressed mood and at times feelings of hopelessness and helplessness. However she has started taking medication and denies any side effects. Supportive therapy was provided Medication Change: Yes Medical Record Reviewed: Yes Mental Status Examination - Cognitive Function Orientation: Person, Place, Situation, Time Memory: Intact Attention: Poor Concentration: Poor Association: Loose Fund of Knowledge: Poor - Mood Mood: Anxious - Affect Affect: Constricted, Depressed - Speech Speech: Soft - Formal Thought Process Formal Thought Process: Hallucinations, Delusions, Paranoia, Loosening of associations - Suicidal Ideation Suicidal Ideation: No - Homicidal Ideation Homicidal Ideation: No Goal/Treatment Plan - Goal/Treatment Plan Need for Continued Stay: Remain at risks for inpatient hospitalization Progress Toward Problem(s) and Goals/Treatment Plan: Schizoaffective disorder depressive type Diabetes mellitus Hypertension Asthma -CBT -Psychoeducation -Supportive therapy and group therapy -Hydroxyzine for anxiety -Trazodone for insomnia -Ziprasidone for psychosis -Continue medications for DM/HTN/asthma
[2018-07-04] MEDS: Fluticasone-Vilanterol 100/25mcg Diskus INH SCH (07:54)
[2018-07-04 08:35] VITALS: O2SAT 100
[2018-07-04] MEDS: Calcium-Vit D 500 mg-200 Units Tab UD PO SCH ×2 (09:36→18:47)
[2018-07-05 06:18] VITALS: RESP 18
[2018-07-05] MEDS: Fluticasone-Vilanterol 100/25mcg Diskus INH SCH (07:55)
--- NOTE | 2018-07-05 09:51 | PCM.PYCHPN ---
Psychiatric Progress Note - Psychiatric Progress Note Patient seen today, length of contact: 15 min Patient Chief Complaint: I was feeling depressed.' Problems Identified/Issues Discussed: Patient was seen and evaluated, chart reviewed and discussed with the staff. Patient appears somewhat more organized and less internally preoccupied than before. She reports improvement in her mood and reports improvement in the feelings of hopelessness and helplessness. She reports improvement in her paranoia and delusions. However she has started taking medication and denies any side effects. Supportive therapy was provided Medication Change: Yes Medical Record Reviewed: Yes Mental Status Examination - Cognitive Function Orientation: Person, Place, Situation, Time Memory: Intact Attention: WNL Concentration: WNL Association: Loose Fund of Knowledge: Poor - Mood Mood: Anxious - Affect Affect: Constricted, Depressed - Speech Speech: Soft - Formal Thought Process Formal Thought Process: Hallucinations, Delusions, Paranoia, Loosening of associations - Suicidal Ideation Suicidal Ideation: No - Homicidal Ideation Homicidal Ideation: No Goal/Treatment Plan - Goal/Treatment Plan Need for Continued Stay: Remain at risks for inpatient hospitalization Progress Toward Problem(s) and Goals/Treatment Plan: Schizoaffective disorder depressive type Diabetes mellitus Hypertension Asthma -CBT -Psychoeducation -Supportive therapy and group therapy -Hydroxyzine for anxiety -Trazodone for insomnia -Ziprasidone for psychosis -Continue medications for DM/HTN/asthma
[2018-07-05] MEDS: Calcium-Vit D 500 mg-200 Units Tab UD PO SCH ×2 (10:00→18:05)
[2018-07-06] MEDS: Fluticasone-Vilanterol 100/25mcg Diskus INH SCH (08:15)
[2018-07-06] MEDS: Calcium-Vit D 500 mg-200 Units Tab UD PO SCH ×2 (09:44→17:48)
--- NOTE | 2018-07-06 23:29 | PCM.PYCHPN ---
Psychiatric Progress Note - Psychiatric Progress Note Patient seen today, length of contact: 17 min Patient Chief Complaint: "I am feeling better today" Problems Identified/Issues Discussed: Patient was seen and chart was reviewed. Case was discussed with treatment team. She reports mood as improved as well as delusions and hallucinations. Patient however still seem to be internally preoccupied, and seem to be talking to herself. Patient however pleasant and more organized, she is compliant with her medications. Medication Change: No Medical Record Reviewed: Yes Mental Status Examination - Cognitive Function Orientation: Person, Place, Situation, Time Memory: Intact Attention: WNL Concentration: WNL Association: Loose Fund of Knowledge: Poor - Mood Mood: Anxious - Affect Affect: Constricted, Depressed - Speech Speech: Soft - Formal Thought Process Formal Thought Process: Hallucinations, Delusions, Paranoia, Loosening of associations - Suicidal Ideation Suicidal Ideation: No - Homicidal Ideation Homicidal Ideation: No Goal/Treatment Plan - Goal/Treatment Plan Need for Continued Stay: Remain at risks for inpatient hospitalization Progress Toward Problem(s) and Goals/Treatment Plan: Continue medications Support and psychoeducation daily Attend groups and activities daily Individual therapy After care planning by TIM and the team
[2018-07-07] MEDS: Albuterol HFA 90 mcg/actuation (8 g) IH PRN (04:26)
[2018-07-07] MEDS: Fluticasone-Vilanterol 100/25mcg Diskus INH SCH (08:12)
[2018-07-07] MEDS: Calcium-Vit D 500 mg-200 Units Tab UD PO SCH ×2 (09:14→17:41)
[2018-07-08] MEDS: Fluticasone-Vilanterol 100/25mcg Diskus INH SCH (08:23)
[2018-07-08] MEDS: Calcium-Vit D 500 mg-200 Units Tab UD PO SCH ×2 (10:01→17:44)
[2018-07-09] MEDS: Calcium-Vit D 500 mg-200 Units Tab UD PO SCH ×2 (09:32→17:06)
[2018-07-09] MEDS ORDERED: Ergocalciferol 50,000 Intl Units Cap PO SCH (10:00)
[2018-07-09] MEDS: Fluticasone-Vilanterol 100/25mcg Diskus INH SCH (10:19)
--- NOTE | 2018-07-09 10:59 | PCM.PYCHPN ---
Psychiatric Progress Note - Psychiatric Progress Note Patient seen today, length of contact: 17 min Patient Chief Complaint: I was feeling depressed.' Problems Identified/Issues Discussed: Patient was seen and evaluated, chart reviewed and discussed with the staff. Patient appears somewhat more organized and less internally preoccupied than before. She reports improvement in her mood and reports improvement in the feelings of hopelessness and helplessness. She reports improvement in her paranoia and delusions. However she has started taking medication and denies any side effects. Supportive therapy was provided Medication Change: No Medical Record Reviewed: Yes Mental Status Examination - Cognitive Function Orientation: Person, Place, Situation, Time Memory: Intact Attention: WNL Concentration: WNL Association: Loose Fund of Knowledge: Poor - Mood Mood: Anxious - Affect Affect: Constricted, Depressed - Speech Speech: Soft - Formal Thought Process Formal Thought Process: Hallucinations, Delusions, Paranoia, Loosening of associations - Suicidal Ideation Suicidal Ideation: No - Homicidal Ideation Homicidal Ideation: No Goal/Treatment Plan - Goal/Treatment Plan Need for Continued Stay: Remain at risks for inpatient hospitalization Progress Toward Problem(s) and Goals/Treatment Plan: Schizoaffective disorder depressive type Diabetes mellitus Hypertension Asthma -CBT -Psychoeducation -Supportive therapy and group therapy -Hydroxyzine for anxiety -Trazodone for insomnia -Ziprasidone for psychosis -Continue medications for DM/HTN/asthma
[2018-07-10 06:55] VITALS: PULSE 83; TEMP 98.3
[2018-07-10] MEDS: Fluticasone-Vilanterol 100/25mcg Diskus INH SCH (08:30)
[2018-07-10 09:52] VITALS: BP 110/78
--- NOTE | 2018-07-10 10:27 | PCM.PYCHDC ---
Mental Status Examination - Mental Status Examination Orientation: Person, Place, Situation, Time Memory: Intact Mood: Neutral Affect: Constricted Speech: Soft Attention: WNL Concentration: WNL Association: WNL Fund of Knowledge: WNL Formal Thought Process: No Impairment Description of patient's judgement and insight: good, fair Psychotic Thoughts and Behaviors: denies any AVH Suicidal Ideation: No Current Homicidal Ideation?: No Discharge Summary - Discharge Note Reason for Hospitalization: This is a 63 year old female who came to the ED because of auditory hallucinations commanding her to take pills and kill herself. Patient reports a long history of schizophrenia with a few inpatient psychiatric admissions. Her most recent admission was 06/10/18 at [facility]. Patient could not remember what she was supposed to do following her last admission. Patient states she stopped taking medications a few days ago and has started hearing the voices again. Patient confirms feeling depressed, irritable, having suicidal and homicidal ideation. Patient denied having a plan to carry out the suicide. She came to the hospital because she was concerned. Patient appears disorganized and internally preoccupied. She looks worried, paranoid, and delusional. Patient confirms seeing shadows. Patient reported a depressed mood, feeling anxious, or any racing thoughts. She denied recent alcohol or other substance abuse. Patient confirms history of alcohol and cocaine use. Consultations:: List each consultation separately and include: 1. Reason for request. 2. Findings. 3. Follow-up Summary of Hospital Course include:: 1. Description of specific treatment plan utilized for patients during their course of treatmen. 2. Summarize the time- course for resolution of acute symptoms and/or regressed behaviors. 3. Describe issues identified and worked on during hospitalization. 4. Describe medication utilized. 5. Describe medical problems identified and treated. 6. Reassessment of suicide risk Summary of Hospital Course: This is a 63 year old female who came to the ED because of auditory hallucinations commanding her to take pills and kill herself. Patient reports a long history of schizophrenia with a few inpatient psychiatric admissions. Her most recent admission was 06/10/18 at [facility]. Patient could not remember what she was supposed to do following her last admission. Patient states she stopped taking medications a few days ago and has started hearing the voices again. Patient confirms feeling depressed, irritable, having suicidal and homicidal ideation. Patient denied having a plan to carry out the suicide. She came to the hospital because she was concerned. Patient appears disorganized and internally preoccupied. She looks worried, paranoid, and delusional. Patient confirms seeing shadows. Patient reported a depressed mood, feeling anxious, or any racing thoughts. She denied recent alcohol or other substance abuse. Patient confirms history of alcohol and cocaine use. PsychHx: schizophrenia paranoid type, continuous FamPsych: denies MedHx: asthma, HTN, DM Allergies: denies - Diagnosis (1) Schizoaffective disorder Current Visit: Yes Status: Acute - Final Diagnosis (DSM 5) Condition upon Discharge: FAIR DSM 5: Schizoaffective disorder depressive type Diabetes mellitus Hypertension Asthma Disposition: HOME/ ROUTINE Follow-up Treatment Plan: Schizoaffective disorder depressive type Diabetes mellitus Hypertension Asthma -CBT -Psychoeducation -Supportive therapy and group therapy -Hydroxyzine for anxiety -Trazodone for insomnia -Ziprasidone for psychosis -Continue medications for DM/HTN/asthma Prescriptions/Medication Reconciliation: Benztropine [Cogentin] 2 mg PO TID #60 tab Sertraline [Zoloft] 100 mg PO DAILY #30 tab traZODone [Desyrel] 100 mg PO HS #30 tab Ziprasidone [Geodon Cap] 40 mg PO BID #60 cap - Smoking Cessation Smoking Cessation Medication prescribed: No - Antipsychotic Medications Pt discharged on 2 or more routine antipsychotic medications: No
[2018-07-10] MEDS: Calcium-Vit D 500 mg-200 Units Tab UD PO SCH (10:49)
== END 2018-07-10 02:30 | disposition home or self-care (01) | DRG 430 ==
LOC: C.ER 01:41 → C.5E 05:40
PROVIDERS: ADMIT Psychiatry & Neurology Psychiatry; ATTEND Psychiatry & Neurology Psychiatry
PROC: GZ3ZZZZ Medication Management (ICD-10-PCS; principal; 2018-07-02)
PROC: GZHZZZZ Group Psychotherapy (ICD-10-PCS; 2018-07-02)
PROC: GZ56ZZZ Individual Psychotherapy, Supportive (ICD-10-PCS; 2018-07-02)
DX: F25.1 Schizoaffective disorder, depressive type (principal); J43.9 Emphysema, unspecified; F20.0 Paranoid schizophrenia; R45.851 Suicidal ideations; R45.850 Homicidal ideations; G47.00 Insomnia, unspecified; F31.9 Bipolar disorder, unspecified; I10 Essential (primary) hypertension; F17.210 Nicotine dependence, cigarettes, uncomplicated; E11.9 Type 2 diabetes mellitus without complications; D64.9 Anemia, unspecified; J45.909 Unspecified asthma, uncomplicated; E78.5 Hyperlipidemia, unspecified; E78.00 Pure hypercholesterolemia, unspecified

== ENCOUNTER 2018-08-31 19:35 | Inpatient (IN) | payer OTHER ==
[2018-08-31 19:50] VITALS: BMI 33.3
--- NOTE | 2018-08-31 20:03 | C.PDOC ---
History Of Present Illness 63 y/o female is brought in by EMS complaining of a headache and stating that she hears voices that are telling her to kill herself and others. She denies any plan. States she hasnt been taking her medications. Patient has history of schizophrenia, diabetes, hypertension, emphysema, and bipolar disorder. Patient denies any other complaints. Chief Complaint (Nursing): Psychiatric Evaluation History Per: Patient, EMS History/Exam Limitations: no limitations Onset/Duration Of Symptoms: Days Current Symptoms Are (Timing): Still Present Past Medical History Reviewed: Historical Data, Nursing Documentation, Vital Signs Vital Signs: Last Vital Signs Temp 98.4 F 08/31/18 19:50 Pulse 91 H 08/31/18 19:50 Resp 19 08/31/18 19:50 BP 150/91 H 08/31/18 19:50 Pulse Ox 97 08/31/18 19:50 Primary Care Provider: Soraya Hernandez - Medical History PMH: Anemia, Anxiety, Asthma, Bipolar Disorder, Depression, Diabetes, Emphysema, HTN, Hypercholesterolemia, Hyperlipidemia, Schizophrenia Denies: Hepatitis, HIV, Chronic Kidney Disease, Seizures, Sexually Transmitted Disease - [facility] Procedures COLONOSCOPY (08/18/13) GROUP PSYCHOTHERAPY (07/02/18) INDIVIDUAL PSYCHOTHERAPY, COGNITIVE-BEHAVIORAL (06/10/18) INDIVIDUAL PSYCHOTHERAPY, SUPPORTIVE (07/02/18) MEDICATION MANAGEMENT (07/02/18) TETANUS TOXOID ADMINIST (03/29/13) Family History: States: No Known Family Hx - Social History Hx Tobacco Use: Yes Hx Alcohol Use: No Hx Substance Use: No - Immunization History Hx Tetanus Toxoid Vaccination: Yes (not sure) Hx Influenza Vaccination: Yes (not sure) Hx Pneumococcal Vaccination: Yes (not sure) Review Of Systems Except As Marked, All Systems Reviewed And Found Negative. Constitutional: Negative for: Fever, Chills Neurological: Positive for: Headache Psych: Positive for: Suicidal ideation (and homicidal ideation), Other (auditory hallucination) Physical Exam - Physical Exam Appears: Non-toxic, No Acute Distress, Other (bizarre affect) Skin: Warm, Dry Head: Normacephalic Eye(s): bilateral: Normal Inspection Oral Mucosa: Moist Neck: Supple Cardiovascular: Rhythm Regular, No Murmur Respiratory: Normal Breath Sounds, No Rales, No Rhonchi, No Wheezing Gastrointestinal/Abdominal: Bowel Sounds, Soft, No Tenderness Extremity: Bilateral: Atraumatic, Normal ROM Neurological/Psych: Oriented x3, Normal Speech ED Course And Treatment - Laboratory Results Result Diagrams: 08/31/18 20:17 08/31/18 20:17 O2 Sat by Pulse Oximetry: 97 (RA) Pulse Ox Interpretation: Normal Medical Decision Making Medical Decision Making: Plan: --Labs --UA Patient is medically cleared. 2150 -Per crisis, Dr. Maldonado accepted patient to his service. Disposition - Disposition Disposition: HOSPITALIZED Disposition Time: 21:51 Condition: STABLE - Clinical Impression Clinical Impression: Schizophrenia - Scribe Statement The provider has reviewed the documentation as recorded by the Juany Crane Provider Attestation: All medical record entries made by the Juany were at my direction and personally dictated by me. I have reviewed the chart and agree that the record accurately reflects my personal performance of the history, physical exam, medical decision making, and the department course for this patient. I have also personally directed, reviewed, and agree with the discharge instructions and disposition.
[2018-08-31 20:11] LABS: BASO % 0.3 % (0.0-2.0); EOS # 0.1 K/uL (0.0-0.7); HEMOGLOBIN 13.5 g/dL (11.0-16.0); LYMPH % 25.4 % (20.0-40.0); MEAN CELL VOLUME 89.2 fL (81.0-99.0); MEAN CORPUSCULAR HEMOGLOBIN 29.7 pg (27.0-31.0); MEAN CORPUSCULAR HGB CONC 33.3 g/dL (33.0-37.0); MEAN PLATELET VOLUME 8.2 fL (7.2-11.7); MONO # 0.6 K/uL (0.0-0.8); MONO % 7.1 % (0.0-10.0); NEUT # 5.3 K/uL (1.8-7.0); NEUT % 66.2 % (50.0-75.0); RBC 4.54 Mil/uL (3.80-5.20); WHITE BLOOD COUNT 7.9 K/uL (4.8-10.8)
[2018-08-31 20:28] LABS: ALB/GLOB RATIO 1.4 (1.0-2.1); ALBUMIN 4.2 g/dL (3.5-5.0); ALT/SGPT 23 U/L (9-52); AST/SGOT 21 U/L (14-36); BLOOD UREA NITROGEN 9 mg/dL (7-17); CALCIUM 9.7 mg/dl (8.6-10.4)
[2018-08-31 20:36] LABS: GFR NON-AFRICAN AMERICAN > 60
[2018-08-31 20:56] LABS: SQUAMOUS EPITHIAL 11 /hpf (0-5); URINE BACTERIA FEW (<OCC); URINE BILIRUBIN NEGATIVE (NEGATIVE); URINE BLOOD NEGATIVE (NEGATIVE); URINE CLARITY Hazy (Clear); URINE COLOR Yellow (YELLOW); URINE GLUCOSE (UA) NORMAL (Normal); URINE LEUKOCYTE ESTERASE 1+ Leu/uL (Negative); URINE PROTEIN NEGATIVE (NEGATIVE); URINE UROBILINOGEN NORMAL mg/dL (0.2-1.0)
[2018-08-31 21:03] LABS: BARBITURATES, UR NEGATIVE (NEGATIVE); BENZODIAZEPINES, UR NEGATIVE (NEGATIVE); OPIATES, UR NEGATIVE (NEGATIVE); PHENCYCLIDINE, UR NEGATIVE (NEGATIVE)
[2018-08-31] MEDS ORDERED: Albuterol HFA 90 mcg/actuation (8 g) INH PRN (23:42)
--- NOTE | 2018-09-01 00:29 | PCM.BM ---
<Henok Stanley - Last Filed: 09/01/18 00:26> Treatment Plan Problems - Problems identified on initial assessmt COMMAND HALLUCINATION Date Initiated: 08/31/18 Time Initiated: 23:00 Assessment reference: NA Status: Active MEDICATION NON-COMPLIANT Date Initiated: 08/31/18 Time Initiated: 23:00 Assessment reference: NA Status: Active Treatment assets and liabiliti Patient Assests: adapts well, cooperative, self-reliant, ADL independent, negotiates basic needs Patient Liabilities: live alone, financial problems, poor support system, dietary restrictions, medical problems - Milieu Protocol Maintain good personal hygiene: daily Encourage regular showers, daily Remind patient to perform daily oral care, daily Assist patient to perform ADL's Conduct patient checks and document Observation sheet: Q15 minutes Maintain personal safety: every shift Educate patient to report safety concerns to staff, every shift Monitor environment for contraband/sharps Medication safety: Monitor for expected outcome, potential side effects: every shift, Assess barriers to learning: every shift, Assess readiness for medication education: every shift <Tasia Del Valle - Last Filed: 09/02/18 11:40> Family Contact Family involvement: Patient does not wish Family/SO involvement Family contact: Patient declines to allow family contact at present - Goals for Treatment Patient goals for treatment: "[place] [facility] [place] Discharge/Continuing Care - Education Needs Education Needs: Patient Medication, Patient Diagnosis/Disease Process, Patient Coping Skills, Patient Placement options, Patient Community resources - Discharge Discharge Criteria: Free of Suicidal thoughts, Normal sleep pattern, Ability to care for self, Reduction of target symptoms Discharge to:: Home, With Family - Treatment Team Participation Discussed with Family/SO: No Was Patient/Family/SO present at Treatment Team Meeting: Yes <Irene Maldonado - Last Filed: 09/04/18 11:13> - Diagnosis (1) Schizophrenia Status: Acute Interventions: 09/04/18 11:13 * Assess/adjust medications daily and /or as needed * See patient on an individual basis 7x/week to assess status of hallucinations * Discuss risks, benefits, side effects and alternatives of medications *
--- NOTE | 2018-09-01 11:07 | PCM.PSYCH ---
Initial Psychiatric Evaluation - Initial Psychiatric Evaluation Type of Admission: Voluntary Legal Status: Capacity Chief Complaint (in patient's own words): I was feeling depressed and hearing voices to kill myself..' History of Present Illness and Precipitating Events: Patient is a 63 years old female, who is currently unemployed and lives alone, came to the [facility] ED with depressed mood, auditory hallucinations telling her to kill herself and kill others. Patient appears somewhat disorganized and internally preoccupied throughout the history. Pt reports that she was hearing voices to kill herself so she held a k nife to hurt her neck and to her arm. Pt reports she had suicidal thoughts to cut her veins as well. However she changed her plan, and came to the [facility] ED to get help. Patient remains a poor historian. Patient has history of multiple inpatient psychiatric hospitalizations. She was last discharged from [facility] last year. She has been following up with the [facility] since then. She receives ERUCESenna shots every 4 weeks. She was superficially cooperative but guarded about the details. Pt reports the voices are telling her to hurt others as well. Pt reports of having homicidal ideation but denies any plan. Pt appears to be responding to internal stimuli. She appeared disheveled and unkempt. Pt reports she also feels someone touching her back and she does not like it. She also reports of seeing God. She remained paranoid and delusional throughout the interview. She reports depressed mood, feelings of hopelessness and helplessness and poor energy. She reports that she is sleeping for 3 hours. She reports poor appetite as she does not want to eat anything. She reports at times irritability and agitation but denies any racing thoughts. She denies any drinking or any substance abuse. Past medical history Hypertension, asthma, DM, Arthritis Current Medications: Active Medications Generic Name Dose Route Start Last Admin Trade Name Freq PRN Reason Stop Dose Admin Albuterol/Ipratropium 3 ml 09/01/18 00:00 Duoneb 3 Mg/0.5 Mg (3 Ml) Ud INH RQ6 PRN Shortness of Breath Hydroxyzine HCl 25 mg 08/31/18 23:22 08/31/18 23:52 Atarax PO 25 mg Q6 PRN Administration Anxiety Pneumococcal Polyvalent Vaccine 0.5 ml 09/02/18 10:00 Pneumovax 23 Vaccine IM 09/02/18 10:01 .ONCE ONE Trazodone HCl 100 mg 08/31/18 23:22 08/31/18 23:51 Desyrel PO 100 mg HS PRN Administration Sleep Past Psychiatric History - Past Psychiatric History Previous Treatment History: Inpatient Pertinent Medical Hx (Current Medical&Sleep Prob, Allergies): Allergies Allergy/AdvReac Type Severity Reaction Status Date / Time No Known Allergies Allergy Verified 08/31/18 19:46 metFORMIN [glucOPHAGE] 500 mg PO BID 09/01/14 Benztropine [Cogentin] 2 mg PO TID #4 tab 10/18/15 Albuterol HFA [Ventolin HFA 90 mcg/actuation (8 g)] 2 puff IH Q4H PRN 12/06/15 Montelukast [Singulair] 10 mg PO HS 05/23/16 Risperidone [Risperdal] 3 mg PO HS 05/23/16 Aspirin [Ecotrin] 81 mg PO DAILY 01/30/17 Ferrous Sulfate [Feosol] 325 mg PO TID 01/30/17 Amlodipine Besylate/Benazepril [Lotrel 10-20 mg Capsule] 10 mg PO DAILY 06/10/18 Enalapril Maleate [Vasotec] 10 mg PO DAILY 06/10/18 Simvastatin 20 mg PO DAILY 06/10/18 Gabapentin [Neurontin] 100 mg PO BID #60 cap 06/17/18 Sertraline [Zoloft] 100 mg PO DAILY #30 tab 07/10/18 traZODone [Desyrel] 100 mg PO HS #30 tab 07/10/18 Review of Systems - Review of Systems All systems: reviewed and no additional remarkable complaints except - Psychiatric Psychiatric: Anxiety, Auditory Hallucinations, Irritability, Suicidal Ideation Mental Status Examination - Personal Presentation Personal Presentation: Looks stated age - Affect Affect: Constricted, Depressed - Motor Activity Motor Activity: Psychomotor Retardation - Reliability in Providing Information Reliability in Providing Information: Poor, due to alteration in thoughts, Poor, due to altered mood - Speech Speech: Disorganized - Mood Mood: Depressed, Anxious - Formal Thought Process Formal Thought Process: Hallucinations, Delusions, Paranoia - Hallucinations/Delusions Hallucinations: Visual, Auditory Delusions: Persecution - Obsessions/Compulsions Obsessions: No Compulsions: No - Cognitive Functions Orientation: Person, Place, Situation, Time Sensorium: Alert Attention/Concentration: Attentive Abstract Thinking: [place] Estimate of Intelligence: Below average Judgement: Imparied, as evidence by: Poor judgement, Imparied, as evidence by: Lack of insight into illness - Risk Risk: Suicidal, Diminished functioning - Limitations Limitations: Living alone DSM 5 DX - Recommended/Plan of Treatment Treatment Recommendations and Plan of Treatment: Schizoaffective disorder depressive type HTN, Asthma, GERD, Hypothyroidism, DM, CBT Supportive therapy Group therapy individual therapy Trazodone for insomnia Hydroxyzine for anxiety Discontinue Seroquel Continue clozapine for psychosis Start Haldol for psychosis Continue medications for hypertension, asthma, hypothyroidism Continue medications for diabetes and continue with regular blood sugar checks
[2018-09-01] MEDS: Albuterol-Ipratrop 3 mg / 0.5 (3 ml) UD INH PRN ×2 (11:08→18:25)
--- NOTE | 2018-09-01 19:26 | CP.PCM.CON ---
<Luh De Paz - Last Filed: 09/02/18 01:11> History of Present Illness - History of Present Illness History of Present Illness: PGY-1 Luh De Paz D.O. Medicine Consult note for Dr. Caity Ramos's service: Patient is a 63 yo female with schizophrenia, HTN, HLD, T2DM, arthritis, hypot hyroidism, GERD, and asthma who is currently admitted to the psychiatry unit for hallucinations and depression with SI. Medicine was consulted for headache, nausea, and vomiting. As per psychiatry, patient reported she was having "the worst headache of her life." She was observed to vomit clear mucus following a cough. She is able to tolerate PO intake and ate 100% of her dinner plus snacks. At the time of exam, patient is extremely lethargic. She only moans and does not respond to questioning. Patient received Risperdal, Ativan, and Trazodone this evening. Therefore, all information is obtained from medical record. PMH: schizophrenia, HTN, HLD, T2DM, arthritis, asthma, hypothyroidism, GERD PSH: unknown Meds: Zoloft 100 mg PO daily, Risperdal 2 mg PO QHS, Trazodone 100 mg PO QHS PRN, Gabapentin 100 mg PO BID, Metformin 500 mg PO BID, Norvasc 10 mg PO daily, Enalapril 10 mg PO daily, Singulair 10 mg PO daily, Duoneb Q6H PRN/Albuterol Q4H PRN, ASA 81 mg PO daily, Crestor 5 mg PO QHS, Ferrous sulfate 325 mg PO TID, Atatrax 25 mg PO Q6H PRN, Ativan 1 mg PO Q8H PRN, Tylenol 650 mg PO Q6H PRN, Motrin 600 mg PO Q6H PRN, Zofran 4 mg PO Q6H PRN All: NKA FH: unable to obtain SH: lives alone, unemployed PMD: unknown Review of Systems - Review of Systems Systems not reviewed;Unavailable: Uncooperative (lethargic) Past Patient History - Infectious Disease Hx of Infectious Diseases: None - Tetanus Immunizations Tetanus Immunization: Unknown - Past Medical History & Family History Past Medical History?: Yes - Past Social History Smoking Status: Former Smoker Chewing Tobacco Use: No Cigar Use: No Occupation: unemployed Alcohol: None Drugs: Denies Home Situation {Lives}: Alone - CARDIAC Hx Hypercholesterolemia: Yes Hx Hypertension: Yes - PULMONARY Hx Asthma: Yes Hx Emphysema: Yes - NEUROLOGICAL Hx Seizures: No - HEENT Hx HEENT Problems: No - RENAL Hx Chronic Kidney Disease: No - ENDOCRINE/METABOLIC Hx Endocrine Disorders: Yes Hx Diabetes Mellitus Type 2: Yes - HEMATOLOGICAL/ONCOLOGICAL Hx Anemia: Yes Hx Human Immunodeficiency Virus (HIV): No - INTEGUMENTARY Hx Dermatological Problems: No - MUSCULOSKELETAL/RHEUMATOLOGICAL Hx Musculoskeletal Disorders: No Hx Falls: No - GASTROINTESTINAL Hx Gastrointestinal Disorders: No Hx Diarrhea: Yes - GENITOURINARY/GYNECOLOGICAL Hx Sexually Transmitted Disorders: No - PSYCHIATRIC Hx Substance Use: Yes (long time ago) - SURGICAL HISTORY Hx Surgeries: Yes - ANESTHESIA Hx Anesthesia: Yes Hx Anesthesia Reactions: No Hx Malignant Hyperthermia: No Meds Allergies/Adverse Reactions: Allergies Allergy/AdvReac Type Severity Reaction Status Date / Time No Known Allergies Allergy Verified 08/31/18 19:46 - Medications Medications: Current Medications Acetaminophen (Tylenol 325mg Tab) 650 mg PO Q6 PRN PRN Reason: Pain, moderate (4-7) Last Admin: 09/01/18 16:24 Dose: 650 mg Albuterol Sulfate (Albuterol 0.083% Inhal Mariah (2.5 Mg/3 Ml) Ud) 2.5 mg INH RQ4 PRN PRN Reason: Shortness of Breath Albuterol/Ipratropium (Duoneb 3 Mg/0.5 Mg (3 Ml) Ud) 3 ml INH RQ6 PRN PRN Reason: Shortness of Breath Last Admin: 09/01/18 11:08 Dose: 3 ml Amlodipine Besylate (Norvasc) 10 mg PO DAILY [facility] Last Admin: 09/01/18 11:46 Dose: 10 mg Aspirin (Ecotrin) 81 mg PO DAILY [facility] Last Admin: 09/01/18 11:46 Dose: 81 mg Enalapril Maleate (Vasotec) 10 mg PO DAILY [facility] Last Admin: 09/01/18 11:47 Dose: 10 mg Ferrous Sulfate (Feosol) 325 mg PO TID [facility] Last Admin: 09/01/18 17:39 Dose: 325 mg Gabapentin (Neurontin) 100 mg PO BID [facility] Last Admin: 09/01/18 17:39 Dose: 100 mg Hydroxyzine HCl (Atarax) 25 mg PO Q6 PRN PRN Reason: Anxiety Last Admin: 08/31/18 23:52 Dose: 25 mg Ibuprofen (Motrin Tab) 600 mg PO Q6H PRN PRN Reason: Pain, moderate (4-7) Lorazepam (Ativan) 1 mg PO Q8H PRN PRN Reason: severe anxiety Last Admin: 09/01/18 18:38 Dose: 1 mg Metformin HCl (Glucophage) 500 mg PO BIDCC [facility] Last Admin: 09/01/18 16:14 Dose: 500 mg Montelukast Sodium (Singulair) 10 mg PO HS [facility] Ondansetron HCl (Zofran Tab) 4 mg PO Q6H PRN PRN Reason: Nausea/Vomiting Pneumococcal Polyvalent Vaccine (Pneumovax 23 Vaccine) 0.5 ml IM .ONCE ONE Stop: 09/02/18 10:01 Risperidone (Risperdal Tab) 2 mg PO HS [facility] Rosuvastatin Calcium (Crestor) 5 mg PO DAILY [facility] Last Admin: 09/01/18 11:46 Dose: 5 mg Sertraline HCl (Zoloft) 100 mg PO DAILY [facility] Last Admin: 09/01/18 11:46 Dose: 100 mg Trazodone HCl (Desyrel) 100 mg PO HS PRN PRN Reason: Sleep Last Admin: 08/31/18 23:51 Dose: 100 mg Physical Exam - Constitutional Appears: No Acute Distress, Other (sleeping) - Head Exam Head Exam: ATRAUMATIC, NORMAL INSPECTION - ENT Exam ENT Exam: Mucous Membranes Moist - Respiratory Exam Respiratory Exam: Clear to Auscultation Bilateral, NORMAL BREATHING PATTERN - Cardiovascular Exam Cardiovascular Exam: REGULAR RHYTHM, +S1, +S2 - GI/Abdominal Exam GI & Abdominal Exam: Normal Bowel Sounds, Soft. absent: Tenderness - Extremities Exam Extremities exam: Positive for: normal inspection - Neurological Exam Additional comments: patient sleeping, opens her eyes to tactile stimulation then immediately falls back to sleep - Skin Skin Exam: Dry, Normal Color, Warm Results - Vital Signs Recent Vital Signs: Last Vital Signs Temp 98.5 F 09/01/18 06:50 Pulse 92 H 09/01/18 17:48 Resp 18 09/01/18 06:50 BP 132/69 09/01/18 17:48 Pulse Ox 95 08/31/18 22:11 - Labs Result Diagrams: 08/31/18 20:17 08/31/18 20:17 Labs: Laboratory Results - last 24 hr 08/31/18 08/31/18 08/31/18 20:17 20:17 20:44 WBC 7.9 RBC 4.54 Hgb 13.5 Hct 40.5 MCV 89.2 MCH 29.7 MCHC 33.3 RDW 13.0 Plt Count 313 MPV 8.2 Neut % (Auto) 66.2 Lymph % (Auto) 25.4 [place] % (Auto) 7.1 Eos % (Auto) 1.0 Baso % (Auto) 0.3 Neut # (Auto) 5.3 Lymph # (Auto) 2.0 [place] # (Auto) 0.6 Eos # (Auto) 0.1 Baso # (Auto) 0.0 Sodium 135 Potassium 3.7 Chloride 95 L Carbon Dioxide 32 H Anion Gap 12 BUN 9 Creatinine 0.7 Est GFR ( Amer) > 60 Est GFR (Non-Af Amer) > 60 POC Glucose (mg/dL) Random Glucose 134 H Calcium 9.7 Phosphorus 3.8 Magnesium 1.8 Total Bilirubin 0.7 AST 21 ALT 23 Alkaline Phosphatase 95 Total Protein 7.2 Albumin 4.2 Globulin 3.0 Albumin/Globulin Ratio 1.4 Urine Color Yellow Urine Clarity Hazy Urine pH 6.0 Ur Specific [place] 1.005 Urine Protein Negative Urine Glucose (UA) Normal Urine Ketones Negative Urine Blood Negative Urine Nitrate Negative Urine Bilirubin Negative Urine Urobilinogen Normal Ur Leukocyte Esterase 1+ H Urine WBC (Auto) 14 H Urine RBC (Auto) 2 Ur Squamous Epith Cells 11 H Urine Bacteria Few H Urine Opiates Screen Urine Methadone Screen Ur Barbiturates Screen Ur Phencyclidine Scrn Ur Amphetamines Screen U Benzodiazepines Scrn U Oth Cocaine Metabols U Cannabinoids Screen Alcohol, Quantitative < 10 08/31/18 09/01/18 20:44 07:36 WBC RBC Hgb Hct MCV MCH MCHC RDW Plt Count MPV Neut % (Auto) Lymph % (Auto) [place] % (Auto) Eos % (Auto) Baso % (Auto) Neut # (Auto) Lymph # (Auto) [place] # (Auto) Eos # (Auto) Baso # (Auto) Sodium Potassium Chloride Carbon Dioxide Anion Gap BUN Creatinine Est GFR ( Amer) Est GFR (Non-Af Amer) POC Glucose (mg/dL) 101 Random Glucose Calcium Phosphorus Magnesium Total Bilirubin AST ALT Alkaline Phosphatase Total Protein Albumin Globulin Albumin/Globulin Ratio Urine Color Urine Clarity Urine pH Ur Specific [place] Urine Protein Urine Glucose (UA) Urine Ketones Urine Blood Urine Nitrate Urine Bilirubin Urine Urobilinogen Ur Leukocyte Esterase Urine WBC (Auto) Urine RBC (Auto) Ur Squamous Epith Cells Urine Bacteria Urine Opiates Screen Negative Urine Methadone Screen Negative Ur Barbiturates Screen Negative Ur Phencyclidine Scrn Negative Ur Amphetamines Screen Negative U Benzodiazepines Scrn Negative U Oth Cocaine Metabols Negative U Cannabinoids Screen Negative Alcohol, Quantitative Assessment & Plan - Assessment and Plan (Free Text) Assessment: Patient is a 63 yo female with schizophrenia, HTN, HLD, T2DM, arthritis, hypothyroidism, GERD, and asthma who is currently admitted to the psychiatry unit for hallucinations and depression with SI. Medicine was consulted for headache, nausea, and vomiting. Plan: Headache, Nausea, Vomiting, acute - CT head: no acute findings - No pertinent electrolyte abnormalities - Patient able to tolerate PO intake- encourage adequate hydration - Zofran 4 mg PO Q6H PRN - Tylenol 650 mg PO Q6H PRN - Motrin 600 mg PO Q6H PRN Schizophrenia, chronic - Management as per psychiatry (Joel) - Zoloft 100 mg PO daily - Risperdal 2 mg PO QHS - Trazodone 100 mg PO QHS PRN - Atatrax 25 mg PO Q6H PRN - Ativan 1 mg PO Q8H PRN Hypertension, chronic - Vitals Q8H - Norvasc 10 mg PO daily - Enalapril 10 mg PO daily Type 2 diabetes mellitus, chronic - Accucheck ACB - Low consistent carb diet - Metformin 500 mg PO BID - Gabapentin 100 mg PO BID - ASA 81 mg PO daily Hyperlipidemia, chronic - Crestor 5 mg PO QHS Asthma, chronic - Singulair 10 mg PO daily - Duoneb Q6H PRN/Albuterol Q4H PRN Iron deficiency, chronic - Ferrous sulfate 325 mg PO TID Case discussed with attending, Dr. Ramos. <Caity Ramos - Last Filed: 09/03/18 05:19> Meds - Medications Medications: Current Medications Acetaminophen (Tylenol 325mg Tab) 650 mg PO Q6 PRN PRN Reason: Pain, moderate (4-7) Last Admin: 09/01/18 16:24 Dose: 650 mg Albuterol Sulfate (Albuterol 0.083% Inhal Mariah (2.5 Mg/3 Ml) Ud) 2.5 mg INH RQ4 PRN PRN Reason: Shortness of Breath Albuterol/Ipratropium (Duoneb 3 Mg/0.5 Mg (3 Ml) Ud) 3 ml INH RQ6 PRN PRN Reason: Shortness of Breath Last Admin: 09/02/18 17:51 Dose: 3 ml Amlodipine Besylate (Norvasc) 10 mg PO DAILY [facility] Last Admin: 09/02/18 10:01 Dose: 10 mg Aspirin (Ecotrin) 81 mg PO DAILY [facility] Last Admin: 09/02/18 10:00 Dose: 81 mg Enalapril Maleate (Vasotec) 10 mg PO DAILY [facility] Last Admin: 09/02/18 10:05 Dose: 10 mg Ferrous Sulfate (Feosol) 325 mg PO TID [facility] Last Admin: 09/02/18 17:01 Dose: 325 mg Gabapentin (Neurontin) 100 mg PO BID [facility] Last Admin: 09/02/18 17:01 Dose: 100 mg Hydroxyzine HCl (Atarax) 25 mg PO Q6 PRN PRN Reason: Anxiety Last Admin: 08/31/18 23:52 Dose: 25 mg Ibuprofen (Motrin Tab) 600 mg PO Q6H PRN PRN Reason: Pain, moderate (4-7) Lorazepam (Ativan) 1 mg PO Q8H PRN PRN Reason: severe anxiety Last Admin: 09/03/18 04:54 Dose: 1 mg Metformin HCl (Glucophage) 500 mg PO BIDCC [facility] Last Admin: 09/02/18 17:01 Dose: 500 mg Montelukast Sodium (Singulair) 10 mg PO HS [facility] Last Admin: 09/02/18 21:05 Dose: 10 mg Ondansetron HCl (Zofran Tab) 4 mg PO Q6H PRN PRN Reason: Nausea/Vomiting Risperidone (Risperdal Tab) 2 mg PO [facility] Last Admin: 09/02/18 21:05 Dose: 2 mg Rosuvastatin Calcium (Crestor) 5 mg PO DAILY [facility] Last Admin: 09/02/18 10:00 Dose: 5 mg Sertraline HCl (Zoloft) 100 mg PO DAILY [facility] Last Admin: 09/02/18 10:00 Dose: 100 mg Trazodone HCl (Desyrel) 100 mg PO HS PRN PRN Reason: Sleep Last Admin: 09/02/18 21:05 Dose: 100 mg Results - Vital Signs Recent Vital Signs: Last Vital Signs Temp 98.3 F 09/02/18 06:31 Pulse 82 09/02/18 15:39 Resp 20 09/02/18 06:31 BP 119/73 09/02/18 15:39 Pulse Ox 97 09/02/18 18:11 - Labs Result Diagrams: 08/31/18 20:17 08/31/18 20:17 Labs: Laboratory Results - last 24 hr 09/02/18 07:36 POC Glucose (mg/dL) 98 Addendum Addendum: 09/03/18 05:18 pt was sleeping due to the meds unable to get much hx.
--- NOTE | 2018-09-02 07:45 | CP.PCM.PN ---
<Darion Waddell L - Last Filed: 09/02/18 11:08> Subjective - Date & Time of Evaluation Date of Evaluation: 09/02/18 Time of Evaluation: 07:45 - Subjective Subjective: Resident Progress Note for Hospitalist Service Patient examined at bedside. No acute events overnight. Patient admits to persisting headache, mostly in her frontal and occipital regions. Her symptoms improve with Tylenol. Nausea and vomiting have resolved and she reports good oral intake. Denies dizziness, hearing or vision changes, abdominal pain, diarrhea, dysuria. Objective - Vital Signs/Intake and Output Vital Signs (last 24 hours): Temp Pulse Resp BP Pulse Ox 98.3 F 80 20 115/71 95 09/02/18 06:31 09/02/18 06:31 09/02/18 06:31 09/02/18 06:31 08/31/18 22:11 - Medications Medications: Current Medications Acetaminophen (Tylenol 325mg Tab) 650 mg PO Q6 PRN PRN Reason: Pain, moderate (4-7) Last Admin: 09/01/18 16:24 Dose: 650 mg Albuterol Sulfate (Albuterol 0.083% Inhal Mariah (2.5 Mg/3 Ml) Ud) 2.5 mg INH RQ4 PRN PRN Reason: Shortness of Breath Albuterol/Ipratropium (Duoneb 3 Mg/0.5 Mg (3 Ml) Ud) 3 ml INH RQ6 PRN PRN Reason: Shortness of Breath Last Admin: 09/01/18 18:25 Dose: 3 ml Amlodipine Besylate (Norvasc) 10 mg PO DAILY [facility] Last Admin: 09/01/18 11:46 Dose: 10 mg Aspirin (Ecotrin) 81 mg PO DAILY [facility] Last Admin: 09/01/18 11:46 Dose: 81 mg Enalapril Maleate (Vasotec) 10 mg PO DAILY [facility] Last Admin: 09/01/18 11:47 Dose: 10 mg Ferrous Sulfate (Feosol) 325 mg PO TID [facility] Last Admin: 09/01/18 17:39 Dose: 325 mg Gabapentin (Neurontin) 100 mg PO BID [facility] Last Admin: 09/01/18 17:39 Dose: 100 mg Hydroxyzine HCl (Atarax) 25 mg PO Q6 PRN PRN Reason: Anxiety Last Admin: 08/31/18 23:52 Dose: 25 mg Ibuprofen (Motrin Tab) 600 mg PO Q6H PRN PRN Reason: Pain, moderate (4-7) Lorazepam (Ativan) 1 mg PO Q8H PRN PRN Reason: severe anxiety Last Admin: 09/01/18 18:38 Dose: 1 mg Metformin HCl (Glucophage) 500 mg PO BIDCC [facility] Last Admin: 09/01/18 16:14 Dose: 500 mg Montelukast Sodium (Singulair) 10 mg PO HS [facility] Last Admin: 09/01/18 22:24 Dose: 10 mg Ondansetron HCl (Zofran Tab) 4 mg PO Q6H PRN PRN Reason: Nausea/Vomiting Pneumococcal Polyvalent Vaccine (Pneumovax 23 Vaccine) 0.5 ml IM .ONCE ONE Stop: 09/02/18 10:01 Risperidone (Risperdal Tab) 2 mg PO HS [facility] Last Admin: 09/01/18 22:24 Dose: 2 mg Rosuvastatin Calcium (Crestor) 5 mg PO DAILY [facility] Last Admin: 09/01/18 11:46 Dose: 5 mg Sertraline HCl (Zoloft) 100 mg PO DAILY [facility] Last Admin: 09/01/18 11:46 Dose: 100 mg Trazodone HCl (Desyrel) 100 mg PO HS PRN PRN Reason: Sleep Last Admin: 09/01/18 22:24 Dose: 100 mg - Labs Labs: 08/31/18 20:17 08/31/18 20:17 - Constitutional Appears: No Acute Distress, Well - Head Exam Head Exam: ATRAUMATIC, NORMOCEPHALIC - Eye Exam Eye Exam: EOMI, Normal Appearance - ENT Exam ENT Exam: Mucous Membranes Moist - Respiratory Exam Respiratory Exam: Clear to Auscultation Bilateral, NORMAL BREATHING PATTERN - Cardiovascular Exam Cardiovascular Exam: REGULAR RHYTHM, +S1, +S2 - GI/Abdominal Exam GI & Abdominal Exam: Normal Bowel Sounds, Soft. absent: Tenderness - Extremities Exam Extremities exam: Positive for: normal inspection - Neurological Exam Additional comments: AAOx3, CN II-XII intact No focal neurological deficits - Skin Skin Exam: Dry, Normal Color, Warm Assessment and Plan - Assessment and Plan (Free Text) Assessment: Patient is a 63 year old female with schizophrenia, HTN, HLD, T2DM, arthritis, hypothyroidism, GERD, and asthma who is currently admitted to the psychiatry unit for hallucinations and depression with suicidal ideations. Medicine consulted for headache, nausea, and vomiting. Plan: Headache - CT head: no acute findings, chronic ischemic changes, diffuse parenchymal atrophy - No pertinent electrolyte abnormalities - UDS negative - Tylenol 650 mg PO Q6H PRN - Motrin 600 mg PO Q6H PRN Nausea/vomiting - Resolved - Patient able to tolerate PO intake- encourage adequate hydration - Zofran 4 mg PO Q6H PRN Schizophrenia - Management as per psychiatry (Dr. Maldonado) - Zoloft 100 mg PO daily - Risperdal 2 mg PO QHS - Trazodone 100 mg PO QHS PRN - Atatrax 25 mg PO Q6H PRN - Ativan 1 mg PO Q8H PRN Hypertension - Norvasc 10 mg PO daily - Enalapril 10 mg PO daily Type 2 diabetes mellitus - Accucheck ACB - Low consistent carb diet - Metformin 500 mg PO BID - Gabapentin 100 mg PO BID Hyperlipidemia - Crestor 5 mg PO QHS Asthma - Singulair 10 mg PO daily - Duoneb Q6H PRN/Albuterol Q4H PRN Iron deficiency - Ferrous sulfate 325 mg PO TID Thank you for this consult. Medicine team will sign off. Please reconsult as necessary for any concerns or questions. Case reviewed with Dr. Oralia Waddell PGY-1 <Marylu Barton - Last Filed: 09/03/18 16:21> Objective - Vital Signs/Intake and Output Vital Signs (last 24 hours): Temp Pulse Resp BP Pulse Ox 97.8 F 81 20 121/72 97 09/03/18 05:46 09/03/18 15:47 09/03/18 05:46 09/03/18 15:47 09/02/18 18:11 - Medications Medications: Current Medications Acetaminophen (Tylenol 325mg Tab) 650 mg PO Q6 PRN PRN Reason: Pain, moderate (4-7) Last Admin: 09/01/18 16:24 Dose: 650 mg Albuterol Sulfate (Albuterol 0.083% Inhal Mariah (2.5 Mg/3 Ml) Ud) 2.5 mg INH RQ4 PRN PRN Reason: Shortness of Breath Last Admin: 09/03/18 05:19 Dose: 2.5 mg Albuterol/Ipratropium (Duoneb 3 Mg/0.5 Mg (3 Ml) Ud) 3 ml INH RQ6 PRN PRN Reason: Shortness of Breath Last Admin: 09/03/18 11:25 Dose: 3 ml Amlodipine Besylate (Norvasc) 10 mg PO DAILY [facility] Last Admin: 09/03/18 09:02 Dose: 10 mg Aspirin (Ecotrin) 81 mg PO DAILY [facility] Last Admin: 09/03/18 09:02 Dose: 81 mg Enalapril Maleate (Vasotec) 10 mg PO DAILY [facility] Last Admin: 09/03/18 09:02 Dose: 10 mg Ferrous Sulfate (Feosol) 325 mg PO TID [facility] Last Admin: 09/03/18 14:12 Dose: 325 mg Gabapentin (Neurontin) 100 mg PO BID [facility] Last Admin: 09/03/18 09:02 Dose: 100 mg Hydroxyzine HCl (Atarax) 25 mg PO Q6 PRN PRN Reason: Anxiety Last Admin: 08/31/18 23:52 Dose: 25 mg Ibuprofen (Motrin Tab) 600 mg PO Q6H PRN PRN Reason: Pain, moderate (4-7) Lorazepam (Ativan) 1 mg PO Q8H PRN PRN Reason: severe anxiety Last Admin: 09/03/18 04:54 Dose: 1 mg Metformin HCl (Glucophage) 500 mg PO BIDCC [facility] Last Admin: 09/03/18 08:05 Dose: 500 mg Montelukast Sodium (Singulair) 10 mg PO HS [facility] Last Admin: 09/02/18 21:05 Dose: 10 mg Ondansetron HCl (Zofran Tab) 4 mg PO Q6H PRN PRN Reason: Nausea/Vomiting Risperidone (Risperdal Tab) 2 mg PO HS [facility] Last Admin: 09/02/18 21:05 Dose: 2 mg Rosuvastatin Calcium (Crestor) 5 mg PO DAILY [facility] Last Admin: 09/03/18 09:02 Dose: 5 mg Sertraline HCl (Zoloft) 100 mg PO DAILY [facility] Last Admin: 09/03/18 09:02 Dose: 100 mg Trazodone HCl (Desyrel) 100 mg PO HS PRN PRN Reason: Sleep Last Admin: 09/02/18 21:05 Dose: 100 mg - Labs Labs: 08/31/18 20:17 08/31/18 20:17 Attending/Attestation - Attestation I have personally seen and examined this patient.: Yes I have fully participated in the care of the patient.: Yes I have reviewed all pertinent clinical information, including history, physical exam and plan: Yes Notes (Text): Thank you for this consult. Medicine team will sign off.
--- NOTE | 2018-09-02 08:07 | CT ---
Date of service: 09/01/2018 PROCEDURE: CT HEAD WITHOUT CONTRAST. HISTORY: headache COMPARISON: None available. TECHNIQUE: Axial computed tomography images were obtained through the head/brain without intravenous contrast. Radiation dose: Total exam DLP = 1091.53 mGy-cm. This CT exam was performed using one or more of the following dose reduction techniques: Automated exposure control, adjustment of the mA and/or kV according to patient size, and/or use of iterative reconstruction technique. FINDINGS: HEMORRHAGE: No intracranial hemorrhage. BRAIN: No mass effect or edema. Scattered focal lucencies in the subcortical and periventricular white matter suggestive for chronic microvascular ischemic change. Diffuse generalized parenchymal atrophy. VENTRICLES: Unremarkable. No hydrocephalus. CALVARIUM: Unremarkable. PARANASAL SINUSES: Unremarkable as visualized. No significant inflammatory changes. MASTOID AIR CELLS: Unremarkable as visualized. No inflammatory changes. OTHER FINDINGS: None. IMPRESSION: No acute intracranial abnormality. Chronic microvascular ischemic change. Diffuse generalized parenchymal atrophy. If symptoms persists, consider correlation with MRI. A preliminary report was generated at 10:32 p.m. on 09/01/[address] Nishant Kendall from [employer].
[2018-09-02] MEDS ORDERED: Pneumococcal 23-Valent Vaccine IM ONE (10:00)
--- NOTE | 2018-09-02 11:14 | PCM.PYCHPN ---
Psychiatric Progress Note - Psychiatric Progress Note Patient seen today, length of contact: 15 min Patient Chief Complaint: I was feeling depressed and hearing voices to kill myself..' Problems Identified/Issues Discussed: Patient was seen and evaluated, chart reviewed and discussed with the staff. Patient reports depressed mood, feelings of hopelessness and helplessness. However she remained disorganized and internally preoccupied. As per staff she remained isolative, withdrawn. She still appears paranoid, and delusional. She is taking medication and denies any side effects She needs to stay longer for further stabilization. Supportive therapy was given. Medication Change: Yes Medical Record Reviewed: Yes Mental Status Examination - Cognitive Function Orientation: Person, Place, Situation, Time Memory: Intact Attention: WNL Concentration: Poor Association: Loose Fund of Knowledge: Poor - Mood Mood: Depressed, Anxious - Affect Affect: Constricted, Depressed - Speech Speech: Soft - Formal Thought Process Formal Thought Process: Hallucinations, Delusions, Paranoia, Loosening of associations - Suicidal Ideation Suicidal Ideation: No - Homicidal Ideation Homicidal Ideation: No Goal/Treatment Plan - Goal/Treatment Plan Need for Continued Stay: Remain at risks for inpatient hospitalization Progress Toward Problem(s) and Goals/Treatment Plan: Schizoaffective disorder depressive type HTN, Asthma, GERD, Hypothyroidism, DM, CBT Supportive therapy Group therapy individual therapy Trazodone for insomnia Hydroxyzine for anxiety Discontinue Seroquel Continue clozapine for psychosis Start Haldol for psychosis Continue medications for hypertension, asthma, hypothyroidism Continue medications for diabetes and continue with regular blood sugar checks
[2018-09-02] MEDS: Albuterol-Ipratrop 3 mg / 0.5 (3 ml) UD INH PRN (17:51)
[2018-09-03] MEDS: Albuterol 0.083% Inhal Sol (2.5 mg/3 mL) UD INH PRN ×2 (05:19→20:44)
[2018-09-03] MEDS: Albuterol-Ipratrop 3 mg / 0.5 (3 ml) UD INH PRN (11:25)
[2018-09-04] MEDS ORDERED: Paliperidone Palmitate 234 MG/1.5 ML SYR IM ONE (13:40)
--- NOTE | 2018-09-04 13:49 | PCM.PYCHPN ---
Psychiatric Progress Note - Psychiatric Progress Note Patient seen today, length of contact: 15 min Patient Chief Complaint: I am feeling little better.' Problems Identified/Issues Discussed: Patient was seen and evaluated, chart reviewed and discussed with the staff. As per staff she remained isolative, withdrawn. She still appears paranoid, and delusional. Patient reports depressed mood, feelings of hopelessness and helplessness. However she remained disorganized and internally preoccupied. She is taking medication and denies any side effects She needs to stay longer for further stabilization. Supportive therapy was given. Medication Change: Yes Medical Record Reviewed: Yes Mental Status Examination - Cognitive Function Orientation: Person, Place, Situation, Time Memory: Intact Attention: WNL Concentration: Poor Association: Loose Fund of Knowledge: Poor - Mood Mood: Depressed, Anxious - Affect Affect: Constricted, Depressed - Speech Speech: Soft - Formal Thought Process Formal Thought Process: Hallucinations, Delusions, Paranoia, Loosening of asso ciations - Suicidal Ideation Suicidal Ideation: No - Homicidal Ideation Homicidal Ideation: No Goal/Treatment Plan - Goal/Treatment Plan Need for Continued Stay: Remain at risks for inpatient hospitalization Progress Toward Problem(s) and Goals/Treatment Plan: Schizoaffective disorder depressive type HTN, Asthma, GERD, Hypothyroidism, DM, CBT Supportive therapy Group therapy individual therapy Trazodone for insomnia Hydroxyzine for anxiety Discontinue Seroquel Continue clozapine for psychosis Start Haldol for psychosis Continue medications for hypertension, asthma, hypothyroidism Continue medications for diabetes and continue with regular blood sugar checks
[2018-09-04] MEDS: Albuterol-Ipratrop 3 mg / 0.5 (3 ml) UD INH PRN (19:25)
[2018-09-05] MEDS: Albuterol 0.083% Inhal Sol (2.5 mg/3 mL) UD INH PRN (08:29)
[2018-09-05] MEDS: Albuterol-Ipratrop 3 mg / 0.5 (3 ml) UD INH PRN (21:24)
--- NOTE | 2018-09-07 19:53 | PCM.PYCHPN ---
Psychiatric Progress Note - Psychiatric Progress Note Patient seen today, length of contact: 17 min Problems Identified/Issues Discussed: Patient was seen and chart was reviewed. Case was discussed with treatment team. Issues related to the illness and treatments were discussed with the patient, and issues related to illness and treatments were discussed with the patient and staff. Patient reported compliance with treatment and no adverse effects from the medications were reported. Patient is tolerating treatment well at this time. Patient reports mood as improved, affect is congruent with mood, but she still seem to be responding to internal stimuli, noted staring into space. Aftercare was discussed with patient and he verbalized understanding. Patient denies any delusions, auditory/visual hallucinations, or perceptual disturbances. Patient also denies any suicidal or homicidal ideation/plan/intent at this time. Medication Change: No Medical Record Reviewed: Yes Mental Status Examination - Cognitive Function Orientation: Person, Place, Situation, Time Memory: Intact Attention: WNL Concentration: Poor Association: Loose Fund of Knowledge: Poor - Mood Mood: Depressed, Anxious - Affect Affect: Constricted, Depressed - Speech Speech: Soft - Formal Thought Process Formal Thought Process: Hallucinations, Delusions, Paranoia, Loosening of associations - Suicidal Ideation Suicidal Ideation: No - Homicidal Ideation Homicidal Ideation: No Goal/Treatment Plan - Goal/Treatment Plan Need for Continued Stay: Remain at risks for inpatient hospitalization, Discharge may exacerbated symptoms Progress Toward Problem(s) and Goals/Treatment Plan: Continue medications Support and psychoeducation daily Attend groups and activities daily Individual therapy After care planning by TIM and the team - Smoking Cessation Smoking Cessation Initiated: No
--- NOTE | 2018-09-08 00:51 | PCM.PYCHPN ---
Psychiatric Progress Note - Psychiatric Progress Note Patient seen today, length of contact: 15 min Patient Chief Complaint: I am feeling little better.' Problems Identified/Issues Discussed: Patient was seen and evaluated, chart reviewed and discussed with the staff. Patient reports depressed mood, feelings of hopelessness and helplessness. As per staff she remained isolative, withdrawn. She still appears paranoid, and delusional. However she remained disorganized and internally preoccupied. She is taking medication and denies any side effects She needs to stay longer for further stabilization. Supportive therapy was given. Medication Change: Yes Medical Record Reviewed: Yes Mental Status Examination - Cognitive Function Orientation: Person, Place, Situation, Time Memory: Intact Attention: WNL Concentration: Poor Association: Loose Fund of Knowledge: Poor - Mood Mood: Depressed, Anxious - Affect Affect: Constricted, Depressed - Speech Speech: Soft - Formal Thought Process Formal Thought Process: Hallucinations, Delusions, Paranoia, Loosening of assoc iations - Suicidal Ideation Suicidal Ideation: No - Homicidal Ideation Homicidal Ideation: No Goal/Treatment Plan - Goal/Treatment Plan Need for Continued Stay: Remain at risks for inpatient hospitalization Progress Toward Problem(s) and Goals/Treatment Plan: Schizoaffective disorder depressive type HTN, Asthma, GERD, Hypothyroidism, DM, CBT Supportive therapy Group therapy individual therapy Trazodone for insomnia Hydroxyzine for anxiety Discontinue Seroquel Continue clozapine for psychosis Start Haldol for psychosis Continue medications for hypertension, asthma, hypothyroidism Continue medications for diabetes and continue with regular blood sugar checks
[2018-09-09 06:25] VITALS: O2SAT 95
--- NOTE | 2018-09-09 22:36 | PCM.PYCHPN ---
Psychiatric Progress Note - Psychiatric Progress Note Patient seen today, length of contact: 15 min Patient Chief Complaint: "I feel much better" Problems Identified/Issues Discussed: The pt is seen, chart reviewed, case is discussed with staff. Support and psychoeducation given, CBT and [place] used briefly Patient was seen more visible on the milieu and does not seem to respond to internal stimuli The pt is improving slowly but needs more time due to severity of symptoms and relapse risk. No SEs from medications, risks discussed. After care discussed Medication Change: Yes Medical Record Reviewed: Yes Mental Status Examination - Cognitive Function Orientation: Person, Place, Situation, Time Memory: Intact Attention: WNL Concentration: Poor Association: Loose Fund of Knowledge: Poor - Mood Mood: Depressed, Anxious - Affect Affect: Constricted, Depressed - Speech Speech: Soft - Formal Thought Process Formal Thought Process: Hallucinations, Delusions, Paranoia, Loosening of associations - Suicidal Ideation Suicidal Ideation: No - Homicidal Ideation Homicidal Ideation: No Goal/Treatment Plan - Goal/Treatment Plan Need for Continued Stay: Remain at risks for inpatient hospitalization Progress Toward Problem(s) and Goals/Treatment Plan: Continue medications Support and psychoeducation daily Attend groups and activities daily Individual therapy After care planning by TIM and the team
[2018-09-10 06:49] VITALS: TEMP 98.3
--- NOTE | 2018-09-10 11:29 | PCM.PYCHPN ---
Psychiatric Progress Note - Psychiatric Progress Note Patient seen today, length of contact: 15 min Patient Chief Complaint: I am feeling much better.' Problems Identified/Issues Discussed: Patient was seen and evaluated, chart reviewed and discussed with the staff. Patient reports improvement in her mood and reports improvement in the paranoia. As per the staff she is more organized than before. She is not talking to herself anymore. However she remained isolative and withdrawn. She is taking medication and denies any side effects She needs to stay longer for further stabilization. Supportive therapy was given. Medication Change: Yes Medical Record Reviewed: Yes Mental Status Examination - Cognitive Function Orientation: Person, Place, Situation, Time Memory: Intact Attention: WNL Concentration: WNL Association: WNL Fund of Knowledge: WNL - Mood Mood: Depressed, Anxious - Affect Affect: Constricted, Depressed - Speech Speech: Soft - Formal Thought Process Formal Thought Process: Paranoia - Suicidal Ideation Suicidal Ideation: No - Homicidal Ideation Homicidal Ideation: No Goal/Treatment Plan - Goal/Treatment Plan Need for Continued Stay: Remain at risks for inpatient hospitalization Progress Toward Problem(s) and Goals/Treatment Plan: Schizoaffective disorder depressive type HTN, Asthma, GERD, Hypothyroidism, DM, CBT Supportive therapy Group therapy individual therapy Trazodone for insomnia Hydroxyzine for anxiety Discontinue Seroquel Continue clozapine for psychosis Risperdal for psychosis Patient is a Kristina Cardenas from the outpatient clinic Continue medications for hypertension, asthma, hypothyroidism Continue medications for diabetes and continue with regular blood sugar checks
[2018-09-11 06:39] VITALS: RESP 18
[2018-09-11 09:25] VITALS: BP 97/67; PULSE 96
--- NOTE | 2018-09-11 10:21 | PCM.PYCHDC ---
Mental Status Examination - Mental Status Examination Orientation: Person, Place, Situation Memory: Intact Mood: Neutral Affect: Constricted Speech: Soft Attention: WNL Concentration: WNL Association: WNL Fund of Knowledge: WNL Formal Thought Process: No Impairment Description of patient's judgement and insight: good, fair Psychotic Thoughts and Behaviors: denies any AVH Suicidal Ideation: No Current Homicidal Ideation?: No Discharge Summary - Discharge Note Reason for Hospitalization: Patient is a 63 years old female, who is currently unemployed and lives alone, came to the [facility] ED with depressed mood, auditory hallucinations telling her to kill herself and kill others. Patient appears somewhat disorganized and internally preoccupied throughout the history. Pt reports that she was hearing voices to kill herself so she held a knife to hurt her neck and to her arm. Pt reports she had suicidal thoughts to cut her veins as well. However she changed her plan, and came to the [facility] ED to get help. Patient remains a poor historian. Patient has history of multiple inpatient p sychiatric hospitalizations. She was last discharged from [facility] last year. She has been following up with the [facility] since then. She receives [employer] shots every 4 weeks. She was superficially cooperative but guarded about the details. Pt reports the voices are telling her to hurt others as well. Pt reports of having homicidal ideation but denies any plan. Pt appears to be responding to internal stimuli. She appeared disheveled and unkempt. Pt reports she also feels someone touching her back and she does not like it. She also reports of seeing God. She remained paranoid and delusional throughout the interview. She reports depressed mood, feelings of hopelessness and helplessness and poor energy. She reports that she is sleeping for 3 hours. She reports poor appetite as she does not want to eat anything. She reports at times irritability and agitation but denies any racing thoughts. She denies any drinking or any substance abuse. Laboratory Data: Abnormal Lab Results 09/11/18 07:36 POC Glucose (mg/dL) 119 H Consultations:: List each consultation separately and include: 1. Reason for request. 2. Findings. 3. Follow-up Summary of Hospital Course include:: 1. Description of specific treatment plan utilized for patients during their course of treatmen. 2. Summarize the time- course for resolution of acute symptoms and/or regressed behaviors. 3. Describe issues identified and worked on during hospitalization. 4. Describe medication utilized. 5. Describe medical problems identified and treated. 6. Reassessment of suicide risk Summary of Hospital Course: Patient is a 63 years old female, who is currently unemployed and lives alone, came to the [facility] ED with depressed mood, auditory hallucinations telling her to kill herself and kill others. Patient appears somewhat disorganized and internally preoccupied throughout the history. Pt reports that she was hearing voices to kill herself so she held a knife to hurt her neck and to her arm. Pt reports she had suicidal thoughts to cut her veins as well. However she changed her plan, and came to the [facility] ED to get help. Patient remains a poor historian. Patient has history of multiple inpatient psychiatric hospitalizations. She was last discharged from [facility] last year. She has been following up with the [facility] since then. She receives [employer] shots every 4 weeks. She was superficially cooperative but guarded about the details. Pt reports the voices are telling her to hurt others as well. Pt reports of having homicidal ideation but denies any plan. Pt appears to be responding to internal stimuli. She appeared disheveled and unkempt. Pt reports she also feels someone touching her back and she does not like it. She also reports of seeing God. She remained paranoid and delusional throughout the interview. She reports depressed mood, feelings of hopelessness and helplessness and poor energy. She reports that she is sleeping for 3 hours. She reports poor appetite as she does not want to eat anything. She reports at times irritability and agitation but denies any racing thoughts. She denies any drinking or any substance abuse. Past medical history Hypertension, asthma, DM, Arthritis - Diagnosis (1) Schizophrenia Current Visit: Yes Status: Acute - Final Diagnosis (DSM 5) Condition upon Discharge: STABLE DSM 5: Schizoaffective disorder depressive type Disposition: HOME/ ROUTINE Follow-up Treatment Plan: Schizoaffective disorder depressive type HTN, Asthma, GERD, Hypothyroidism, DM, CBT Supportive therapy Group therapy individual therapy Trazodone for insomnia Hydroxyzine for anxiety Discontinue Seroquel Continue clozapine for psychosis Start Haldol for psychosis Continue medications for hypertension, asthma, hypothyroidism Continue medications for diabetes and continue with regular blood sugar checks Prescriptions/Medication Reconciliation: Gabapentin [Neurontin] 100 mg PO BID #60 cap hydrOXYzine HCl [Atarax] 25 mg PO BID #60 tab Paliperidone Palmitate [Invega Sustenna] 234 mg IM ONCE #1 syr risperiDONE [RisperDAL Tab] 2 mg PO HS #30 tab Sertraline [Zoloft] 100 mg PO DAILY #30 tab - Smoking Cessation Smoking Cessation Medication prescribed: No - Antipsychotic Medications Pt discharged on 2 or more routine antipsychotic medications: No
== END 2018-09-11 11:50 | disposition home or self-care (01) | DRG 430 ==
LOC: C.ER 19:35 → C.5E 21:51
PROVIDERS: ADMIT Psychiatry & Neurology Psychiatry; ATTEND Psychiatry & Neurology Psychiatry
PROC: GZHZZZZ Group Psychotherapy (ICD-10-PCS; principal; 2018-08-31)
PROC: GZ56ZZZ Individual Psychotherapy, Supportive (ICD-10-PCS; 2018-08-31)
DX: F25.1 Schizoaffective disorder, depressive type (principal); J43.9 Emphysema, unspecified; E78.5 Hyperlipidemia, unspecified; F41.9 Anxiety disorder, unspecified; G47.00 Insomnia, unspecified; I10 Essential (primary) hypertension; J45.909 Unspecified asthma, uncomplicated; R45.851 Suicidal ideations; Z87.891 Personal history of nicotine dependence; E11.9 Type 2 diabetes mellitus without complications; E03.9 Hypothyroidism, unspecified